=== PATIENT | male | born 1965 | race Caucasian/White ===

== ENCOUNTER → 2016-03-31 | Outpatient (CLI) | payer OTHER ==
[~2016-03-31] MED LIST: BACT800T5 PO; GEMF600T PO; HYDR-3583 PO; LISI-360 PO; LISI10TA3 PO; LOPI600T PO; PRED50 PO
[2016-03-31 10:11] LABS: BASOPHIL # 0.1 TH/MM3 (0-0.2); BASOPHIL % 1.3 % (0.0-2.0); EOSINOPHIL # 0.2 TH/MM3 (0-0.4); EOSINOPHIL % 4.9 % (0.0-4.0); HEMATOCRIT 40.9 % (39.0-51.0); HEMO FLAGS DIFF FINAL; LYMPH % 24.8 % (9.0-44.0); LYMPHOCYTE # 1.2 TH/MM3 (1.0-4.8); MEAN CELL VOLUME 92.1 FL (80.0-100.0); MEAN CORPUSCULAR HEMOGLOBIN 32.7 PG (27.0-34.0); MEAN CORPUSCULAR HGB CONC 35.5 % (32.0-36.0); MONO % 10.3 % (0.0-8.0); NEUT % 58.7 % (16.0-70.0); PLATELET COUNT 218 TH/MM3 (150-450); RED BLOOD COUNT 4.44 MIL/MM3 (4.50-5.90)
[2016-03-31 10:37] LABS: ALKALINE PHOSPHATASE 59 U/L (45-117); ALT (GPT) 24 U/L (12-78); ANION GAP 7 MEQ/L (5-15); AST (GOT) 10 U/L (15-37); BICARBONATE 27.3 MEQ/L (21.0-32.0); BLOOD UREA NITROGEN 17 MG/DL (7-18); CHLORIDE 105 MEQ/L (98-107); GLOMERULAR FILTRATION RATE 79 ML/MIN (>89); GLUCOSE,FASTING 91 MG/DL (74-99); HDL CHOLESTEROL 31.7 MG/DL (40.0-60.0); LDL CHOLESTEROL 34 MG/DL (0-99); POTASSIUM 4.4 MEQ/L (3.5-5.1); SODIUM (NA) 139 MEQ/L (136-145); TOTAL BILIRUBIN ADULT 0.3 MG/DL (0.2-1.0)
== END ==
LOC: CLAB 09:25
PROVIDERS: ATTEND Family Medicine
DX: E16.2 Hypoglycemia, unspecified (principal); M25.522 Pain in left elbow; E66.9 Obesity, unspecified; Z72.0 Tobacco use
CPT/HCPCS: 36415; 80053; 80061; 84443; 85025

== ENCOUNTER 2016-11-14 05:41 | Emergency (ER) | payer OTHER ==
[~2016-11-14] VITALS: Ht 180.3 cm; Wt 140.5 kg
[~2016-11-14 05:41] MED LIST changes: -BACT800T5 PO; -LISI-360 PO; -LOPI600T PO; -PRED50 PO
[2016-11-14 05:43] VITALS: BP 138/87; PULSE 103; RESP 20; TEMP 99.1; O2SAT 96
[2016-11-14 06:00] VITALS: BP 139/74; PULSE 88; RESP 18; TEMP 98.3; O2SAT 95
[2016-11-14] MEDS ORDERED: ACETAMINOPHEN/HYDROcodone 325 MG/5 MG TAB PO ONE (06:45)
[2016-11-14] MEDS ORDERED: CLIN1CAP5 PO (06:55)
[2016-11-14] MEDS ORDERED: NORC5TAB PO (06:55)
--- NOTE | 2016-11-14 06:55 | PD ---
HPI Chief Complaint: Skin Problem Time Seen by Provider: 06:36 Travel History International Travel<30 days: No Contact w/Intl Traveler<30days: No Traveled to known affect area: No History of Present Illness HPI Patient is a 51-year-old male presents emergency department for evaluation of redness and wound to his right lower extremity. He states initially started as an itching and then had some redness around it and then started draining. Denies any fever denies any chest pain shortness of breath abdominal pain nausea vomiting. States he is not a diabetic. Denies any other immune compromise. States symptoms for the past few days and gradually worsening. Moderate in intensity. PFSH Past Medical History Blood Disorders: No Cancer: No Cardiovascular Problems: Yes (HTN) High Cholesterol: Yes Chest Pain: No Diminished Hearing: No Endocrine: No Gastrointestinal Disorders: No Genitourinary: No Immune Disorder: No Musculoskeletal: No Neurologic: No Psychiatric: No Reproductive: No Respiratory: Yes (SPOT OF TISSUE IN ONE LUNG, BRONCHITIS) Tetanus Vaccination: > 5 Years Influenza Vaccination: Yes Past Surgical History Abdominal Surgery: No AICD: No Arteriovenous Shunt: No Cardiac Surgery: No Ear Surgery: No Endocrine Surgery: No Eye Surgery: No Genitourinary Surgery: No Gynecologic Surgery: No Insulin Pump: No Joint Replacement: No Neurologic Surgery: No Oral Surgery: No Pacemaker: No Thoracic Surgery: No Other Surgery: Yes (LEFT MIDDLE FINGER TENDON REPAIR) Social History Alcohol Use: Yes Tobacco Use: Yes (1/2 PPD) Substance Use: No Allergies-Medications (Allergen,Severity, Reaction): Coded Allergies: bee venom protein (honey bee) (Unverified Allergy, Severe, 11/14/16) Reported Meds & Prescriptions Reported Meds & Active Scripts Active [place] (Hydrocodone-Acetaminophen) 5-325 mg Tab 1 Tab PO Q6H PRN Clindamycin (Clindamycin HCl) 150 Mg Cap 300 Mg PO Q6H 7 Days Lisinopril 10 Mg Tab 10 Mg PO DAILY Gemfibrozil 600 Mg Tab 600 Mg PO BIDAC Take 30 minutes prior to breakfast and dinner. Review of Systems Except as stated in HPI: all other systems reviewed are Neg Physical Exam Narrative GENERAL: Well-developed well-nourished, obese but noticed distress. SKIN: Is a silver dollar-sized area of erythema surrounding a dime-sized ulceration in the skin which is draining minimal amounts of purulent fluid. No discernible abscess is palpable. No lymphadenopathy no lymph angina.. HEAD: Normocephalic. EYES: No scleral icterus. No injection or drainage. NECK: Supple, trachea midline. No JVD or lymphadenopathy. CARDIOVASCULAR: Regular rate and rhythm without murmurs, gallops, or rubs. RESPIRATORY: Breath sounds equal bilaterally. No accessory muscle use. GASTROINTESTINAL: Abdomen soft, non-tender, nondistended. MUSCULOSKELETAL: No cyanosis, or edema. 2+ bilateral equal pulses distally in all 4 extremities. BACK: Nontender without obvious deformity. No CVA tenderness. Data Data Last Documented VS Vital Signs Date Time Temp Pulse Resp B/P (MAP) Pulse Ox O2 Delivery O2 Flow Rate FiO2 11/14/16 07:00 97.8 78 16 130/69 (89) 99 11/14/16 06:00 Room Air Orders Orders Acetamin-Hydrocod 325-5 Mg ([place] 5-325 (11/14/16 06:45) MDM Medical Decision Making Medical Screen Exam Complete: Yes Emergency Medical Condition: Yes Differential Diagnosis Cellulitis, abscess, sepsis is excluded clinically. Narrative Course Patient roomed in emergency department, has simple cellulitis with small ulceration skin. Will be placed on antibiotics and pain medication. Discussed return to ED criteria and symptomatic management. Diagnosis Primary Impression: Cellulitis Qualified Codes: L03.115 - Cellulitis of right lower limb Med/Other Pt SpecificInfo: Prescription(s) given Scripts Hydrocodone-Acetaminophen ([place]) 5-325 mg Tab 1 TAB PO Q6H Y for PAIN, #15 TAB 0 Refills Prov: Philippe Pearson MD 11/14/16 Clindamycin (Clindamycin) 150 Mg Cap 300 MG PO Q6H for Infection for 7 Days, #56 CAP 0 Refills Prov: Philippe Pearson MD 11/14/16 Disposition: 01 DISCHARGE HOME Condition: Stable Philippe Pearson MD Nov 14, 2016 06:55
[2016-11-14 07:00] VITALS: BP 130/69; TEMP 97.8
== END 2016-11-14 07:00 | disposition home or self-care (01) ==
LOC: NEPC 05:41
DX: L03.115 Cellulitis of right lower limb (principal)
CPT/HCPCS: 99284

== ENCOUNTER 2017-06-15 05:37 | Inpatient (IN) | payer SELFPAY ==
[2017-06-15] VITALS (27 sets, daily range): BP systolic 82–115; BP diastolic 51–82; PULSE 130–150; RESP 15–20; TEMP 97.8–98.5; O2SAT 94–98
[~2017-06-15] VITALS: Ht 180.3 cm; Wt 144.0 kg
[~2017-06-15 05:37] MED LIST changes: +ADENOSINE IV SOLN 3 MG/ML 2 ML VIAL IV PUSH ONE; +CLIN150C14 PO; -HYDR-3583 PO; +NORC5TAB PO
[2017-06-15] MEDS ORDERED: ONDANSETRON HCL 4 MG/2 ML VIAL IV PUSH ONE (06:00)
[2017-06-15] MEDS ORDERED: ASPIRIN 81 MG CHEW TAB PO ONE (06:00)
[2017-06-15] MEDS ORDERED: SODIUM CHLORIDE 0.9% FLUSH 10 ML FLUSH IVF PRN (06:00)
[2017-06-15] MEDS: METOPROLOL TARTRATE 5 MG/5 ML VIAL IVS PRN ×3 (06:21→23:58)
[2017-06-15 06:26] LABS: BASOPHIL # 0.1 TH/MM3 (0-0.2); EOSINOPHIL # 0.2 TH/MM3 (0-0.4); EOSINOPHIL % 3.4 % (0.0-4.0); HEMATOCRIT 43.1 % (39.0-51.0); HEMOGLOBIN 15.1 GM/DL (13.0-17.0); LYMPH % 22.3 % (9.0-44.0); LYMPHOCYTE # 1.5 TH/MM3 (1.0-4.8); MEAN CELL VOLUME 94.6 FL (80.0-100.0); MEAN CORPUSCULAR HEMOGLOBIN 33.2 PG (27.0-34.0); MEAN CORPUSCULAR HGB CONC 35.1 % (32.0-36.0); MEAN PLATELET VOLUME 10.3 FL (7.0-11.0); MONO % 11.8 % (0.0-8.0); MONOCYTE # 0.8 TH/MM3 (0-0.9); NEUT % 61.5 % (16.0-70.0); PLATELET COUNT 200 TH/MM3 (150-450); RED BLOOD COUNT 4.55 MIL/MM3 (4.50-5.90); RED CELL DISTRIBUTION WIDTH 12.9 % (11.6-17.2); WHITE BLOOD COUNT 6.6 TH/MM3 (4.0-11.0)
--- NOTE | 2017-06-15 06:28 | PD ---
HPI . Chest pain Chief Complaint: Chest Pain Time Seen by Provider: 05:50 Travel History International Travel<30 days: No Contact w/Intl Traveler<30days: No Traveled to known affect area: No History of Present Illness HPI Patient presents with chest pain, palpitations, nausea and vomiting which started acutely at 2 AM. It awakened him from sleep. He denies any previous similar history. He initially thought that his symptoms were secondary to eating [place] sprouts. Symptoms persisted causing him to present to us at this time. Symptoms are actually very mild. There have been no modifying factors. He is now about 4 hours out from the onset of his symptoms. The patient admits to history of hypertension and previous hyperlipidemia. He states that he is compliant with his antihypertensives. He states that he is no longer on cholesterol medication. He denies any previous heart disease. PFSH Past Medical History Blood Disorders: No Cancer: No Cardiovascular Problems: Yes (HTN) High Cholesterol: Yes Chest Pain: No Diminished Hearing: No Endocrine: No Gastrointestinal Disorders: No Genitourinary: No Hypertension: Yes Immune Disorder: No Musculoskeletal: No Neurologic: No Psychiatric: No Reproductive: No Respiratory: Yes (SPOT OF TISSUE IN ONE LUNG, BRONCHITIS) Tetanus Vaccination: Unknown Influenza Vaccination: No Past Surgical History Abdominal Surgery: No AICD: No Arteriovenous Shunt: No Cardiac Surgery: No Ear Surgery: No Endocrine Surgery: No Eye Surgery: No Genitourinary Surgery: No Gynecologic Surgery: No Insulin Pump: No Joint Replacement: No Neurologic Surgery: No Oral Surgery: No Pacemaker: No Thoracic Surgery: No Other Surgery: Yes (LEFT MIDDLE FINGER TENDON REPAIR) Social History Alcohol Use: Yes (occasionally) Tobacco Use: Yes (1/2 PPD) Substance Use: No Allergies-Medications (Allergen,Severity, Reaction): Coded Allergies: bee venom protein (honey bee) (Unverified Allergy, Severe, 06/15/17) Reported Meds & Prescriptions Reported Meds & Active Scripts Active [place] (Hydrocodone-Acetaminophen) 5-325 mg Tab 1 Tab PO Q6H PRN Lisinopril 10 Mg Tab 10 Mg PO DAILY Review of Systems Except as stated in HPI: all other systems reviewed are Neg Physical Exam Narrative GENERAL: Awake and alert and in no acute distress. SKIN: warm/dry. HEAD: Normocephalic. Atraumatic. EYES: Pupils equal and round. No scleral icterus. No injection or drainage. ENT: No nasal bleeding or discharge. Mucous membranes pink and moist. NECK: Trachea midline. Full range of motion without pain.. CARDIOVASCULAR: Regular tachycardia at about 150. RESPIRATORY: No accessory muscle use. Clear to auscultation. Breath sounds equal bilaterally. GASTROINTESTINAL: Abdomen soft. Nontender. Bowel sounds present. Nondistended. MUSCULOSKELETAL: No obvious deformities. He does have peripheral edema. He states that this is chronic and unchanged. NEUROLOGICAL: Awake and alert. No obvious cranial nerve deficits. Motor grossly within normal limits. Normal speech. PSYCHIATRIC: Appropriate mood and affect; insight and judgment normal. Data Data Last Documented VS Vital Signs Date Time Temp Pulse Resp B/P (MAP) Pulse Ox O2 Delivery O2 Flow Rate FiO2 06/15/17 07:10 98.2 137 18 102/61 (75) 96 Room Air Orders Orders Electrocardiogram (06/15/17 05:52) Basic Metabolic Panel (Bmp) (06/15/17 05:52) Complete Blood Count With Diff (06/15/17 05:52) Magnesium (Mg) (06/15/17 05:52) Prothrombin Time / Inr (Pt) (06/15/17 05:52) Act Partial Throm Time (Ptt) (06/15/17 05:52) Troponin I (06/15/17 05:52) Chest, Single Ap (06/15/17 05:52) Ecg Monitoring (06/15/17 05:52) Iv Access Insert/Monitor (06/15/17 05:52) Oximetry (06/15/17 05:52) Aspirin Chew (Aspirin Chew) (06/15/17 06:00) Sodium Chloride 0.9% Flush (Ns Flush) (06/15/17 06:00) Metoprolol Tartrate Inj (Lopressor Inj) (06/15/17 06:00) Alcohol (Ethanol) (06/15/17 05:52) Ondansetron Inj (Zofran Inj) (06/15/17 06:00) Sodium Chlor 0.9% 1000 Ml Inj (Ns 1000 M (06/15/17 06:45) Thyroid Stimulating Hormone (06/15/17 06:47) Diltiazem Inj (Cardizem Inj) (06/15/17 07:15) Ns (Bolus) Inj (06/15/17 07:15) Labs Laboratory Tests Test 4/16/18 06:08 White Blood Count 6.6 TH/MM3 Red Blood Count 4.55 MIL/MM3 Hemoglobin 15.1 GM/DL Hematocrit 43.1 % Mean Corpuscular Volume 94.6 FL Mean Corpuscular Hemoglobin 33.2 PG Mean Corpuscular Hemoglobin Concent 35.1 % Red Cell Distribution Width 12.9 % Platelet Count 200 TH/MM3 Mean Platelet Volume 10.3 FL Neutrophils (%) (Auto) 61.5 % Lymphocytes (%) (Auto) 22.3 % Monocytes (%) (Auto) 11.8 % Eosinophils (%) (Auto) 3.4 % Basophils (%) (Auto) 1.0 % Neutrophils # (Auto) 4.0 TH/MM3 Lymphocytes # (Auto) 1.5 TH/MM3 Monocytes # (Auto) 0.8 TH/MM3 Eosinophils # (Auto) 0.2 TH/MM3 Basophils # (Auto) 0.1 TH/MM3 CBC Comment DIFF FINAL Differential Comment Prothrombin Time 10.4 SEC Prothromb Time International Ratio 1.0 RATIO Activated Partial Thromboplast Time 25.3 SEC Blood Urea Nitrogen 19 MG/DL Creatinine 1.11 MG/DL Random Glucose 118 MG/DL Calcium Level 8.5 MG/DL Magnesium Level 1.8 MG/DL Sodium Level 141 MEQ/L Potassium Level 4.2 MEQ/L Chloride Level 110 MEQ/L Carbon Dioxide Level 22.9 MEQ/L Anion Gap 8 MEQ/L Estimat Glomerular Filtration Rate 70 ML/MIN Troponin I LESS THAN 0.02 NG/ML Ethyl Alcohol Level LESS THAN 3 MG/DL MDM Medical Decision Making Medical Screen Exam Complete: Yes Emergency Medical Condition: Yes Interpretation(s) EKG shows atrial flutter with a rate of 150. Differential Diagnosis Differential diagnosis of chest pain includes but is not limited to musculoskeletal pain, pulmonary embolism, acute coronary syndrome, pneumonia, pleurisy Narrative Course This patient presents with a chief complaint of chest pain, palpitations and nausea/vomiting. He was found to have a rapid heart rate and to be in atrial flutter with a rate of 150. IV access was obtained and metoprolol was ordered. Routine chest pain workup is in process. He has been given aspirin. He has also been given Zofran. The patient has had 1 dose of IV metoprolol but is a little bit hypotensive with a systolic of around 100. The low systolic pressure has been persistent for the last half hour or so. I will give him a fluid bolus before giving him any more metoprolol. CBC Diagram 06/15/17 06:08 He has had 2 doses of metoprolol. His heart rate is about 140. His care is turned over to Dr. Peters at change of shift. Critical Care Narrative Aggregate critical care time was 30 minutes. Time to perform other separately billable procedures was not included in the critical care time. My time did not include minutes spent treating any other patients simultaneously or on activities that did not directly contribute to the patient's treatment. The services I provided to this patient were to treat and/or prevent clinically significant deterioration due to atrial flutter with a rapid ventricular response I provided critical care services requiring my management, as noted below: Chart data review, documentation time, medication orders and management, vital sign assessments/reviewing monitor data, ordering and reviewing lab tests, ordering and interpreting/reviewing x-rays and diagnostic studies, care of the patient and discussion of the patient with the admitting physicians Diagnosis Primary Impression: Atrial flutter with rapid ventricular response Additional Impression: Chest pain Qualified Codes: R07.9 - Chest pain, unspecified Condition: Stable America Black MD Jun 15, 2017 06:28
[2017-06-15 06:37] LABS: PROTHROMBIN TIME - PATIENT 10.4 SEC (9.8-11.6)
--- NOTE | 2017-06-15 06:40 | RADRPT ---
EXAM DATE/TIME: 06/15/2017 06:08 [facility] COMPARISON: CHEST PA & LAT, September 29, 2014, 15:40. INDICATIONS : Short of breath, dizziness. MEDICAL HISTORY : None. SURGICAL HISTORY : None. ENCOUNTER: Initial ACUITY: 1 day PAIN SCORE: 0/10 LOCATION: Bilateral chest FINDINGS: A single view of the chest demonstrates the lungs to be symmetrically aerated without evidence of mas s, infiltrate or effusion. The cardiomediastinal contours are unremarkable. Osseous structures are intact. CONCLUSION: No acute cardiopulmonary disease demonstrated. Zaid Lopez MD on June 15, 2017 at 6:38 Board Certified Radiologist. This report was verified electronically.
[2017-06-15 06:42] LABS: BICARBONATE 22.9 MEQ/L (21.0-32.0); BLOOD UREA NITROGEN 19 MG/DL (7-18); CALCIUM 8.5 MG/DL (8.5-10.1); CHLORIDE 110 MEQ/L (98-107); CREATININE 1.11 MG/DL (0.60-1.30); GLOMERULAR FILTRATION RATE 70 ML/MIN (>89); GLUCOSE,RANDOM 118 MG/DL (74-106); MAGNESIUM 1.8 MG/DL (1.5-2.5); SODIUM (NA) 141 MEQ/L (136-145)
[2017-06-15] MEDS ORDERED: SODIUM CHLOR 0.9% 1000 ML INJ 1,000 ML IV ONE (06:45)
[2017-06-15 06:46] LABS: TROPONIN I LESS THAN 0.02 NG/ML (0.02-0.05)
[2017-06-15] MEDS ORDERED: DILTIAZEM HCL 25 MG/5 ML VIAL IV ONE (07:15)
[2017-06-15] MEDS ORDERED: SODIUM CHLORID 0.9% 500 ML INJ 500 ML IV ONE (07:15)
[2017-06-15] MEDS ORDERED: DILTIAZEM HCL 50 MG/10 ML VIAL ONE (07:16)
[2017-06-15] MEDS ORDERED: ESMOLOL HCL 100 MG/10 ML VIAL IV PUSH ONE (07:45)
[2017-06-15] MEDS ORDERED: ADENOSINE IV SOLN 3 MG/ML 2 ML VIAL IV PUSH ONE ×2 (08:00)
[2017-06-15] MEDS: ESMOLOL DRIP INJ PREMIX 250 ML IV PRN ×3 (08:07→10:05)
--- NOTE | 2017-06-15 08:12 | PD ---
Physical Exam Date Seen by Provider: Jun 15, 2017 Time Seen by Provider: 08:06 Narrative 52-year-old male came to the emergency room with sudden onset chest pain, palpitations and burning sensation at 2 in the morning. Patient says that it woke him up from sleep. The pain first started from his abdomen and went up to the chest. After passing gas patient felt a little better and went back to sleep. He woke up after another hour or so to get up and get ready to go to work. He walked from his bed to the bathroom and got extremely short of breath with heaviness of both arms. This made him come to the emergency room. He was seen by the previous ER physician. EKG showed atrial flutter with a 2-1 block. There has been an institutional shortage of Cardizem. She gave him 5 mg of IV Lopressor which did not change the heart rate. Blood test results were back and within acceptable limits. Patient was signed over to me to manage at this point. I gave the patient 20 mg of IV Cardizem bolus which again did not change the rhythm with a rate. I tried giving him 6 mg of adenosine which converted him briefly to atrial flutter with variable block. But soon after that the rate picked up and went to 2:1 block. I gave him 12 more milligrams of adenosine and the response was identical. Rhythm strips were printed which shows the brief slowing down of the heart rate. Patient tolerated the procedure well. At this point I decided to start him on esmolol bolus and drip which has been recommended by security guard due to the Cardizem shortage. I started him on heparin bolus and drip as well. Awaiting for the hospitalist to call back for admission. Awaiting for the security guard to call back. This is a new onset A. fib/A flutter for this patient. Data Data Last Documented VS Vital Signs Date Time Temp Pulse Resp B/P (MAP) Pulse Ox O2 Delivery O2 Flow Rate FiO2 06/15/17 08:33 136 100/62 06/15/17 07:37 98.2 16 96 Room Air Orders Orders Electrocardiogram (06/15/17 05:52) Basic Metabolic Panel (Bmp) (06/15/17 05:52) Complete Blood Count With Diff (06/15/17 05:52) Magnesium (Mg) (06/15/17 05:52) Prothrombin Time / Inr (Pt) (06/15/17 05:52) Act Partial Throm Time (Ptt) (06/15/17 05:52) Troponin I (06/15/17 05:52) Chest, Single Ap (06/15/17 05:52) Ecg Monitoring (06/15/17 05:52) Iv Access Insert/Monitor (06/15/17 05:52) Oximetry (06/15/17 05:52) Aspirin Chew (Aspirin Chew) (06/15/17 06:00) Sodium Chloride 0.9% Flush (Ns Flush) (06/15/17 06:00) Metoprolol Tartrate Inj (Lopressor Inj) (06/15/17 06:00) Alcohol (Ethanol) (06/15/17 05:52) Ondansetron Inj (Zofran Inj) (06/15/17 06:00) Sodium Chlor 0.9% 1000 Ml Inj (Ns 1000 M (06/15/17 06:45) Thyroid Stimulating Hormone (06/15/17 06:47) Diltiazem Inj (Cardizem Inj) (06/15/17 07:15) Sodium Chlorid 0.9% 500 Ml Inj (Ns 500 M (06/15/17 07:15) Diltiazem Inj (Cardizem Inj) (06/15/17 07:16) Esmolol Drip Inj Premix (Brevibloc Drip (06/15/17 07:45) Esmolol Bolus Inj (Brevibloc Bolus Inj) (06/15/17 07:45) Adenosine Inj (Adenocard Inj) (06/15/17 08:00) Adenosine Inj (Adenocard Inj) (06/15/17 08:00) Heparin Inj (Heparin Inj) (06/15/17 08:15) Heparin Inj (Heparin Inj) (06/15/17 14:15) Heparin Inj (Heparin Inj) (06/15/17 14:15) Heparin-D5w 25,000 U/250 Ml (Heparin-D5w (06/15/17 08:15) Act Partial Throm Time (Ptt) (06/15/17 08:03) Cbc No Diff, Includes Plts (06/15/17 08:03) Act Partial Throm Time (Ptt) (06/15/17 15:03) Occult Blood (Hemoccult) Stool (06/15/17 08:03) Admit Order (Ed Use Only) (06/15/17 08:33) Labs Laboratory Tests Test 06/15/17 06:08 White Blood Count 6.6 TH/MM3 Red Blood Count 4.55 MIL/MM3 Hemoglobin 15.1 GM/DL Hematocrit 43.1 % Mean Corpuscular Volume 94.6 FL Mean Corpuscular Hemoglobin 33.2 PG Mean Corpuscular Hemoglobin Concent 35.1 % Red Cell Distribution Width 12.9 % Platelet Count 200 TH/MM3 Mean Platelet Volume 10.3 FL Neutrophils (%) (Auto) 61.5 % Lymphocytes (%) (Auto) 22.3 % Monocytes (%) (Auto) 11.8 % Eosinophils (%) (Auto) 3.4 % Basophils (%) (Auto) 1.0 % Neutrophils # (Auto) 4.0 TH/MM3 Lymphocytes # (Auto) 1.5 TH/MM3 Monocytes # (Auto) 0.8 TH/MM3 Eosinophils # (Auto) 0.2 TH/MM3 Basophils # (Auto) 0.1 TH/MM3 CBC Comment DIFF FINAL Differential Comment Prothrombin Time 10.4 SEC Prothromb Time International Ratio 1.0 RATIO Activated Partial Thromboplast Time 25.3 SEC Blood Urea Nitrogen 19 MG/DL Creatinine 1.11 MG/DL Random Glucose 118 MG/DL Calcium Level 8.5 MG/DL Magnesium Level 1.8 MG/DL Sodium Level 141 MEQ/L Potassium Level 4.2 MEQ/L Chloride Level 110 MEQ/L Carbon Dioxide Level 22.9 MEQ/L Anion Gap 8 MEQ/L Estimat Glomerular Filtration Rate 70 ML/MIN Troponin I LESS THAN 0.02 NG/ML Thyroid Stimulating Hormone 3rd Gen 1.570 uIU/ML Ethyl Alcohol Level LESS THAN 3 MG/DL MDM Supervised Visit with [facility]: No Narrative Course 8:32 AM case was discussed with cardiology Dr. Marquez. He agrees with the plan so far. As per him if the esmolol drip does not work then amiodarone would be the next choice. Patient has been admitted to the hospitalist. I have conveyed this to the hospitalist as well. Critical Care Narrative Aggregate critical care time was 45 minutes. Time to perform other separately billable procedures was not included in the critical care time. My time did not include minutes spent treating any other patients simultaneously or on activities that did not directly contribute to the patient's treatment. The services I provided to this patient were to treat and/or prevent clinically significant deterioration that could result in: Atrial flutter with 2-1 block, new onset atrial flutter/A. fib, esmolol bolus and drip, heparin bolus and drip I provided critical care services requiring my management, as noted below: Chart data review, documentation time, medication orders and management, vital sign assessments/reviewing monitor data, ordering and reviewing lab tests, ordering and interpreting/reviewing x-rays and diagnostic studies, care of the patient and discussion of the patient with the admitting physicians. Procedures Procedure Narrative Chemical cardioversion: Adenosine 6 mg IV was given through the right ACL rapid push followed by one rapid push normal saline flush. The heart rate slowed down and went into a flutter with variable block for a brief second. This was followed by recovery of the 2-1 block of atrial flutter. 12 mg more of adenosine was pushed in the same manner once again with identical response. Patient overall tolerated the procedure well. Physician Communication Physician Communication Dr. Marquez Diagnosis Primary Impression: Atrial flutter with rapid ventricular response Additional Impressions: Chest pain Qualified Codes: R07.9 - Chest pain, unspecified New onset a-fib Admitting Information Admitting Physician Requests: Admit Scripts Apixaban (Eliquis) 5 Mg Tab 5 MG PO BID for Blood Clot Prevention, #60 TAB Prov: Sandra Avila MD 06/17/17 Condition: Stable Nestor Peters MD Jun 15, 2017 08:12
[2017-06-15] MEDS ORDERED: HEPARIN SODIUM - IV 10,000 UNITS/10 ML VIAL IV ONE (08:15)
[2017-06-15] MEDS ORDERED: SODIUM CHLORIDE 0.9% FLUSH 10 ML FLUSH IV FLUSH PRN (08:45)
[2017-06-15] MEDS ORDERED: ACETAMINOPHEN 325 MG TAB PO PRN (08:45)
[2017-06-15] MEDS ORDERED: LACTULOSE SYRUP 20 GM/30 ML CUP PO PRN (08:45)
[2017-06-15] MEDS ORDERED: MAGNESIUM HYDROXIDE SUSP 30 ML CUP PO PRN (08:45)
[2017-06-15] MEDS ORDERED: ONDANSETRON HCL 4 MG/2 ML VIAL IVP PRN (08:45)
[2017-06-15] MEDS ORDERED: SENNOSIDES 8.6 MG TAB PO PRN (08:45)
[2017-06-15] MEDS ORDERED: BISACODYL 10 MG SUPP RECTAL PRN (08:45)
[2017-06-15] MEDS ORDERED: NALOXONE HCL 0.4 MG/ML AMP IV PUSH PRN (08:45)
[2017-06-15] MEDS: HEPARIN-D5W 25,000 U/250 ML 250 ML IV PRN (08:46)
[2017-06-15] MEDS: SODIUM CHLORIDE 0.9% FLUSH 10 ML FLUSH IV FLUSH SCH ×2 (08:55→21:00)
[2017-06-15] MEDS: DOCUSATE SODIUM 50 MG/SENNA 8.6 MG TAB PO SCH ×2 (09:01→21:00)
[2017-06-15] MEDS: ACETAMINOPHEN/HYDROcodone 325 MG/5 MG TAB PO PRN ×3 (09:01→20:57)
[2017-06-15 09:47] LABS: HEMOGLOBIN 14.3 GM/DL (13.0-17.0); MEAN CELL VOLUME 95.3 FL (80.0-100.0); MEAN CORPUSCULAR HEMOGLOBIN 33.3 PG (27.0-34.0); MEAN CORPUSCULAR HGB CONC 34.9 % (32.0-36.0); MEAN PLATELET VOLUME 10.7 FL (7.0-11.0); PLATELET COUNT 207 TH/MM3 (150-450); RED CELL DISTRIBUTION WIDTH 12.9 % (11.6-17.2); WHITE BLOOD COUNT 8.2 TH/MM3 (4.0-11.0)
[2017-06-15] MEDS ORDERED: AMIODARONE INJ 150 MG in DEXTROSE 5% IN WATER 100ML INJ 100 ML IV ONE ×2 (11:30)
[2017-06-15] MEDS: AMIODARONE INJ 450 MG in SODIUM CHLOR 0.9% (EXCEL) INJ 241 ML IV PRN (11:50)
[2017-06-15] MEDS ORDERED: HEPARIN SODIUM - IV 10,000 UNITS/10 ML VIAL IV PRN (14:15)
--- NOTE | 2017-06-15 15:11 | HHI.HP ---
HPI Service [facility] Primary Care Physician No Primary Care Physician Admission Diagnosis New onset A. fib/A flutter, a flutter with 2-1 block Diagnoses: Chief Complaint: sob, palpitations Travel History International Travel<30 Days: No Contact w/Intl Traveler <30 Da: No Traveled to Known Affected Are: No History of Present Illness Patient is a 52 yo male with PMH of HTN, chronic back pain, presents with chest pain, palpitations, sob, nausea and vomiting which started acutely at 2 AM. It awakened him from sleep. He denies any previous similar history. He initially thought that his symptoms were secondary to eating [place] sprouts. Symptoms persisted causing him to present to ED for further evaluation. Symptoms are very mild. There have been no modifying factors. The patient admits to history of hypertension and previous hyperlipidemia. He states that he is compliant with his antihypertensives. He states that he is no longer on cholesterol medication. He denies any previous heart disease.Says she is complainant in taking his eds for BP and with follow up. Review of Systems Except as stated in HPI: all other systems reviewed are Neg Past Family Social History Past Medical History HTN, chronic back pain Past Surgical History Left middle finger tendon repair Reported Medications Last Impressions Chest X-Ray 06/15/17 0552 Signed Impressions: Service Date/Time: Thursday, June 15, 2017 06:08 - CONCLUSION: No acute cardiopulmonary disease demonstrated. Zaid Lopez MD Allergies: Coded Allergies: bee venom protein (honey bee) (Unverified Allergy, Severe, 06/15/17) Family History Father: had triple bypass, hypertension Mother: lymph node cancer, adrenal cancer, hypertension Social History Alcohol Use: Yes (occasionally) Tobacco Use: Yes (1-2 PPD) Substance Use: No Physical Exam Vital Signs Vital Signs Date Time Temp Pulse Resp B/P (MAP) Pulse Ox O2 Delivery O2 Flow Rate FiO2 06/15/17 15:03 98.3 142 18 91/51 (64) 95 06/15/17 15:03 140 06/15/17 14:09 140 06/15/17 13:31 98.3 138 18 115/62 (79) 95 06/15/17 13:29 138 06/15/17 12:45 98.0 131 20 98/67 (77) 99 Nasal Cannula 2.00 06/15/17 12:37 98.2 138 15 97/56 (70) 98 Nasal Cannula 2.00 06/15/17 11:50 133 93/52 06/15/17 11:37 139 92/55 06/15/17 11:05 98.3 134 20 82/54 (63) 98 Nasal Cannula 2.00 06/15/17 10:34 133 80/49 06/15/17 10:05 132 100/59 06/15/17 10:03 20 97 Nasal Cannula 2.00 06/15/17 10:01 17 06/15/17 09:22 98.5 132 15 93/51 (65) 96 Room Air 06/15/17 09:02 97.8 133 18 99/58 (72) 97 Room Air 06/15/17 08:41 96 21 06/15/17 08:41 129 100/61 06/15/17 08:33 136 100/62 06/15/17 08:22 138 102/68 06/15/17 08:09 140 102/63 06/15/17 08:07 140 102/63 06/15/17 07:37 98.2 138 16 106/54 (71) 96 Room Air 06/15/17 07:15 98.3 139 15 92/54 (67) 95 Room Air 06/15/17 07:15 140 15 95 Room Air 06/15/17 07:10 98.2 137 18 102/61 (75) 96 Room Air 06/15/17 06:24 150 18 101/68 (79) 96 Room Air 06/15/17 06:12 94 06/15/17 05:39 97.9 150 20 111/82 (92) 94 Physical Exam GENERAL: This is a well-nourished, well-developed patient, in no apparent distress. SKIN: No rashes, ecchymoses or lesions. Cool and dry. HEAD: Atraumatic. Normocephalic. No temporal or scalp tenderness. EYES: Pupils equal round and reactive. Extraocular motions intact. No scleral icterus. No injection or drainage. ENT: Nose without bleeding, purulent drainage or septal hematoma. Throat without erythema, tonsillar hypertrophy or exudate. Uvula midline. Airway patent. NECK: Trachea midline. No JVD or lymphadenopathy. Supple, nontender, no meningeal signs. CARDIOVASCULAR: Tachycardic. Regular rate and rhythm without murmurs, gallops, or rubs. RESPIRATORY: Clear to auscultation. Breath sounds equal bilaterally. No wheezes , rales, or rhonchi. GASTROINTESTINAL: Abdomen soft, non-tender, nondistended. No hepato-splenomegaly , or palpable masses. No guarding. MUSCULOSKELETAL: Extremities without clubbing, cyanosis, or edema. No joint tenderness, effusion, or edema noted. No calf tenderness. Negative Homans sign bilaterally. NEUROLOGICAL: Awake and alert. Cranial nerves II through XII intact. Motor and sensory grossly within normal limits. Five out of 5 muscle strength in all muscle groups. Normal speech. Laboratory Laboratory Tests Test 06/15/17 06:08 06/15/17 09:00 White Blood Count 6.6 8.2 Red Blood Count 4.55 4.30 Hemoglobin 15.1 14.3 Hematocrit 43.1 41.0 Mean Corpuscular Volume 94.6 95.3 Mean Corpuscular Hemoglobin 33.2 33.3 Mean Corpuscular Hemoglobin Concent 35.1 34.9 Red Cell Distribution Width 12.9 12.9 Platelet Count 200 207 Mean Platelet Volume 10.3 10.7 Neutrophils (%) (Auto) 61.5 Lymphocytes (%) (Auto) 22.3 Monocytes (%) (Auto) 11.8 Eosinophils (%) (Auto) 3.4 Basophils (%) (Auto) 1.0 Neutrophils # (Auto) 4.0 Lymphocytes # (Auto) 1.5 Monocytes # (Auto) 0.8 Eosinophils # (Auto) 0.2 Basophils # (Auto) 0.1 CBC Comment DIFF FINAL Differential Comment Prothrombin Time 10.4 Prothromb Time International Ratio 1.0 Activated Partial Thromboplast Time 25.3 51.9 Blood Urea Nitrogen 19 Creatinine 1.11 Random Glucose 118 Calcium Level 8.5 Magnesium Level 1.8 Sodium Level 141 Potassium Level 4.2 Chloride Level 110 Carbon Dioxide Level 22.9 Anion Gap 8 Estimat Glomerular Filtration Rate 70 Troponin I LESS THAN 0.02 Thyroid Stimulating Hormone 3rd Gen 1.570 Ethyl Alcohol Level LESS THAN 3 Result Diagram: 06/15/17 0900 06/15/17 0608 Imaging Last Impressions Chest X-Ray 06/15/17 0552 Signed Impressions: Service Date/Time: Thursday, June 15, 2017 06:08 - CONCLUSION: No acute cardiopulmonary disease demonstrated. MD Rosa Shearer VTE Risk Assessment Rosa VTE Risk Assessment: Mod/High Risk (score >= 2) Caprini Risk Assessment Model Point Value = 1 Point Value = 2 Point Value = 3 Point Value = 5 Age 41-60 Minor surgery BMI > 25 kg/m2 Swollen legs Varicose veins or History of unexplained or recurrent spontaneous Oral contraceptives or hormone replacement Sepsis (< 1 month) Serious lung disease, including pneumonia (< 1 month) Abnormal pulmonary function Acute myocardial infarction Congestive heart failure (< 1 month) History of inflammatory bowel disease Medical patient at bed rest Age 61-74 Arthroscopic surgery Major open surgery (> 45 min) Laparoscopic surgery (> 45 min) Malignancy Confined to bed (> 72 hours) Immobilizing plaster cast Central venous access Age >= 75 History of VTE Family history of VTE Factor V Leiden Prothrombin [id number] Lupus anticoagulant Anticardiolipin antibodies Elevated serum homocysteine Heparin-induced thrombocytopenia Other congenital or acquired thrombophilia Stroke (< 1 month) Elective arthroplasty Hip, pelvis, or leg fracture Acute spinal cord injury (< 1 month) Prophylaxis Regimen Total Risk Factor Score Risk Level Prophylaxis Regimen 0-1 Low Early ambulation 2 Moderate Order ONE of the following: *Sequential Compression Device (SCD) *Heparin 5000 units SQ BID 3-4 Higher Order ONE of the following medications: *Heparin 5000 units SQ TID *Enoxaparin/Lovenox 40 mg SQ daily (WT < 150 kg, CrCl > 30 mL/min) *Enoxaparin/Lovenox 30 mg SQ daily (WT < 150 kg, CrCl > 10-29 mL/min) *Enoxaparin/Lovenox 30 mg SQ BID (WT < 150 kg, CrCl > 30 mL/min) AND/OR *Sequential Compression Device (SCD) 5 or more Highest Order ONE of the following medications: *Heparin 5000 units SQ TID (Preferred with Epidurals) *Enoxaparin/Lovenox 40 mg SQ daily (WT < 150 kg, CrCl > 30 mL/min) *Enoxaparin/Lovenox 30 mg SQ daily (WT < 150 kg, CrCl > 10-29 mL/min) *Enoxaparin/Lovenox 30 mg SQ BID (WT < 150 kg, CrCl > 30 mL/min) AND *Sequential Compression Device (SCD) Assessment and Plan Assessment and Plan Admit to inpatient [facility] Atrial flutter with rapid ventricular response, with a rate of 150 on admission Hypertension Chronic back pain Bilateral renal mass indicated MRI for further evaluation. Patient will have MRI as outpatient Received adenosine in the emergency room, also metoprolol, Cardizem, he was also placed on esmolol however she has blood pressure is noted persistent low. This I discontinue the esmolol. Start amiodarone bolus followed by amiodarone drip. Discussed with Dr. Marquez cardiology following. Plan to consult community specialist Dr. Crain for evaluation of ablation this patient with persistent atrial flutter Restart home medications as appropriate. Hold lisinopril if systolic blood pressure lower than 110 Started on heparin drip DVT prophylaxis on heparin drip Discussed Condition With Discussed with the patient, family at bedside, Dr. Marquez cardiology, ED physician Physician Certification 2 Midnight Certification Type: Admission for Inpatient Services Order for Inpatient Services The services are ordered in accordance with Medicare regulations or non- Medicare payer requirements, as applicable. In the case of services not specified as inpatient-only, they are appropriately provided as inpatient services in accordance with the 2-midnight benchmark. Estimated LOS (days): 3 days is the estimated time the patient will need to remain in the hospital, assuming treatment plan goals are met and no additional complications. Post-Hospital Plan: Home Sandra Avila MD Jun 15, 2017 15:11
[2017-06-15] MEDS: LORazepam 0.5 MG TAB PO PRN (15:27)
[2017-06-15] MEDS: HEPARIN SODIUM - IV 10,000 UNITS/10 ML VIAL IV PRN (20:27)
[2017-06-16] VITALS (30 sets, daily range): BP systolic 88–124; BP diastolic 57–79; PULSE 74–141; RESP 14–20; TEMP 97.4–98.5; O2SAT 92–99
[2017-06-16 02:32] LABS: AUTOMATED NEUTROPHIL # 4.4 TH/MM3 (1.8-7.7); BASOPHIL # 0.1 TH/MM3 (0-0.2); BASOPHIL % 0.8 % (0.0-2.0); EOSINOPHIL # 0.3 TH/MM3 (0-0.4); EOSINOPHIL % 4.2 % (0.0-4.0); HEMATOCRIT 41.4 % (39.0-51.0); HEMOGLOBIN 14.3 GM/DL (13.0-17.0); LYMPH % 30.2 % (9.0-44.0); LYMPHOCYTE # 2.4 TH/MM3 (1.0-4.8); MEAN CELL VOLUME 96.5 FL (80.0-100.0); MEAN CORPUSCULAR HEMOGLOBIN 33.5 PG (27.0-34.0); MEAN CORPUSCULAR HGB CONC 34.7 % (32.0-36.0); MEAN PLATELET VOLUME 10.3 FL (7.0-11.0); MONO % 9.7 % (0.0-8.0); MONOCYTE # 0.8 TH/MM3 (0-0.9); NEUT % 55.1 % (16.0-70.0); PLATELET COUNT 184 TH/MM3 (150-450); RED BLOOD COUNT 4.29 MIL/MM3 (4.50-5.90); RED CELL DISTRIBUTION WIDTH 12.9 % (11.6-17.2)
[2017-06-16 02:46] LABS: BICARBONATE 25.9 MEQ/L (21.0-32.0); CREATININE 0.97 MG/DL (0.60-1.30)
[2017-06-16] MEDS: ACETAMINOPHEN/HYDROcodone 325 MG/5 MG TAB PO PRN ×2 (03:39→21:33)
[2017-06-16] MEDS: HEPARIN SODIUM - IV 10,000 UNITS/10 ML VIAL IV PRN ×2 (03:40→10:57)
--- NOTE | 2017-06-16 07:53 | HHI.PR ---
Subjective Remarks Patient in bed with some sob. HR uncontrolled sustained in 130s while on amiodarone drip. Plan for EP eval. No n/v/d/c. Denies chest pain. No fever or chills. Objective Vitals Vital Signs Date Time Temp Pulse Resp B/P (MAP) Pulse Ox O2 Delivery O2 Flow Rate FiO2 06/16/17 07:49 92 Nasal Cannula 3.00 21 06/16/17 05:52 85 06/16/17 05:39 97 06/16/17 05:26 119 06/16/17 05:00 109 06/16/17 04:00 135 06/16/17 03:10 102 06/16/17 03:00 98.2 102 20 102/74 (83) 94 06/16/17 02:00 105 06/16/17 02:00 130 18 88/57 (67) 96 06/16/17 01:39 97 06/16/17 01:00 130 06/16/17 00:39 87 06/16/17 00:35 96 18 91/63 (72) 96 06/16/17 00:10 98.5 133 20 95/68 (77) 94 06/16/17 00:00 130 06/15/17 23:30 133 20 92/62 (72) 94 06/15/17 23:20 133 06/15/17 23:20 133 20 100/70 (80) 94 06/15/17 22:00 130 06/15/17 21:00 138 06/15/17 21:00 130 06/15/17 20:00 98.3 140 20 108/70 (83) 95 06/15/17 20:00 140 06/15/17 19:19 97 06/15/17 19:00 140 06/15/17 19:00 140 108/70 18 18:19 139 06/15/17 17:02 131 06/15/17 16:50 18 06/15/17 16:01 142 06/15/17 15:03 98.3 142 18 91/51 (64) 95 06/15/17 15:03 140 06/15/17 14:09 140 06/15/17 13:31 98.3 138 18 115/62 (79) 95 06/15/17 13:29 138 06/15/17 12:45 98.0 131 20 98/67 (77) 99 Nasal Cannula 2.00 06/15/17 12:37 98.2 138 15 97/56 (70) 98 Nasal Cannula 2.00 06/15/17 11:50 133 93/52 06/15/17 11:37 139 92/55 06/15/17 11:05 98.3 134 20 82/54 (63) 98 Nasal Cannula 2.00 06/15/17 10:34 133 80/49 06/15/17 10:05 132 100/59 06/15/17 10:03 20 97 Nasal Cannula 2.00 06/15/17 09:22 98.5 132 15 93/51 (65) 96 Room Air 06/15/17 09:02 97.8 133 18 99/58 (72) 97 Room Air 06/15/17 08:41 96 21 06/15/17 08:41 129 100/61 06/15/17 08:33 136 100/62 06/15/17 08:22 138 102/68 06/15/17 08:09 140 102/63 06/15/17 08:07 140 102/63 I/O 06/15/17 06/15/17 06/15/17 06/16/17 06/16/17 06/16/17 07:00 15:00 23:00 07:00 15:00 23:00 Intake Total 2006 ml 480 ml 1006 ml Output Total 400 ml 2300 ml Balance 2006 ml 80 ml -1294 ml Intake Oral 300 ml 480 ml 660 ml IV Total 1706 ml 346 ml Output Urine Total 400 ml 2300 ml # Voids 1 # Bowel Movements 1 0 Result Diagram: 06/16/17 0226 06/16/17 0226 Imaging Last Impressions Chest X-Ray 06/15/17 0552 Signed Impressions: Service Date/Time: Thursday, June 15, 2017 06:08 - CONCLUSION: No acute cardiopulmonary disease demonstrated. Zaid Lopez MD Objective Remarks GENERAL: This is a well-nourished, well-developed patient, in no apparent distress. SKIN: No rashes, ecchymoses or lesions. Cool and dry. HEAD: Atraumatic. Normocephalic. No temporal or scalp tenderness. EYES: Pupils equal round and reactive. Extraocular motions intact. No scleral icterus. No injection or drainage. ENT: Nose without bleeding, purulent drainage or septal hematoma. Throat without erythema, tonsillar hypertrophy or exudate. Uvula midline. Airway patent. NECK: Trachea midline. No JVD or lymphadenopathy. Supple, nontender, no meningeal signs. CARDIOVASCULAR: Tachycardic. Regular rate and rhythm without murmurs, gallops, or rubs. RESPIRATORY: Clear to auscultation. Breath sounds equal bilaterally. No wheezes , rales, or rhonchi. GASTROINTESTINAL: Abdomen soft, non-tender, nondistended. No hepato-splenomegaly , or palpable masses. No guarding. MUSCULOSKELETAL: Extremities without clubbing, cyanosis, or edema. No joint tenderness, effusion, or edema noted. No calf tenderness. Negative Homans sign bilaterally. NEUROLOGICAL: Awake and alert. Cranial nerves II through XII intact. Motor and sensory grossly within normal limits. Five out of 5 muscle strength in all muscle groups. Normal speech. A/P Assessment and Plan Atrial flutter with rapid ventricular response, with a rate of 150 on admission Hypertension Chronic back pain Bilateral renal mass indicated MRI for further evaluation. Patient will have MRI as outpatient Received adenosine in the emergency room, also metoprolol, Cardizem, he was also placed on esmolol however she has blood pressure is noted persistent low. Discontinued esmolol. Started on amiodarone bolus followed by amiodarone drip. Discussed with Dr. Marquez cardiology following. Consult medical accounts receivable specialist Dr. Crain for evaluation of ablation this patient with persistent atrial flutter. NPO plan for EP evaluation On heparin drip Restart home medications as appropriate. Hold lisinopril if systolic blood pressure lower than 110 DVT prophylaxis on heparin drip Discussed Condition With Discussed with the patient, nurse Sandra Avila MD Jun 16, 2017 07:53
[2017-06-16] MEDS: DOCUSATE SODIUM 50 MG/SENNA 8.6 MG TAB PO SCH ×2 (08:35→21:00)
[2017-06-16] MEDS: HEPARIN-D5W 25,000 U/250 ML 250 ML IV PRN ×2 (08:38→10:49)
[2017-06-16] MEDS: SODIUM CHLORIDE 0.9% FLUSH 10 ML FLUSH IV FLUSH SCH ×2 (08:39→21:00)
[2017-06-16] MEDS ORDERED: LISINOPRIL 10 MG TAB PO SCH (09:00)
[2017-06-16] MEDS: AMIODARONE INJ 450 MG in SODIUM CHLOR 0.9% (EXCEL) INJ 241 ML IV PRN (09:01)
--- NOTE | 2017-06-16 09:41 | MB ---
cc: Juno Marquez DO DATE: 06/15/2017 REASON FOR CONSULTATION: Atrial flutter with rapid ventricular response. HISTORY OF PRESENT ILLNESS: Yossi Moses is a pleasant 52-year-old male who presented to [facility] Emergency Room on 06/15/2017 due to palpitations, shortness of breath, nausea and vomiting. Around 2 a.m. on 06/15/2017, he was awoken from his sleep due to nausea and vomiting. He states that as he was up and walking around, he felt like his heart was racing and he was more short of breath. He denies any chest pains. He thought this was initially secondary to eating brussel sprouts. As his symptoms continued, he felt that he should come in to the emergency room. On arrival, he was found to be in atrial flutter with a rapid ventricular response. They attempted to give him IV Lopressor which did not change his heart rate. He was then given 6 and 12 of adenosine and rhythm strip showed a decrease in his heart rate with what appears to be atrial flutter. He was started on esmolol bolus, as there is a Cardizem shortage. After being placed on the esmolol bolus, he had been somewhat hypotensive and this has since been stopped. From that point, I gave him amiodarone bolus and started on amiodarone drip. In seeing him, he is currently sleeping, with no symptoms as his heart rate is around 120-130 beats per minute. PAST MEDICAL HISTORY: 1. Hypertension. 2. Chronic back pain. PAST SURGICAL HISTORY: Left middle finger tendon repair. ALLERGIES: BEE VENOM PROTEIN. MEDICATIONS: 1. Lisinopril 10 mg daily. 2. Ellerbe every 6 hours as needed for pain. FAMILY HISTORY: Father had a triple bypass and has a history of hypertension. Mother had lymph node cancer, adrenal cancer and hypertension. SOCIAL HISTORY: The patient drinks alcohol occasionally. He smokes 1-2 packs of cigarettes a day. Denies substance abuse. REVIEW OF SYSTEMS: Fourteen systems were reviewed including osteopathic, pertinent positives and negatives above, otherwise negative. PHYSICAL EXAMINATION: VITAL SIGNS: Temperature 98.0, heart rate 130, blood pressure 98/67, respirations 20, pulse oximetry 99% on 2 liters. GENERAL: The patient appears well, in no acute distress, alert, awake and oriented x 3. HEENT: Extraocular muscles intact. Mucous membranes moist. NECK: Supple. No JVD at 45 degrees. No carotid bruits heard bilaterally. Carotid upstroke is brisk in nature. HEART: Tachycardic. Positive first and second heart sounds, with no noted murmurs, gallops or rubs. LUNGS: Clear to auscultation bilaterally. No wheezes, rales or rhonchi. ABDOMEN: Soft, nontender, nondistended. No organomegaly noted. EXTREMITIES: Show no clubbing, cyanosis or edema. Femoral and distal pulses intact bilaterally. NEUROLOGIC: No focal deficits. SKIN: Warm, dry and intact. OSTEOPATHIC: No kyphoscoliosis, lordosis or paraspinal tender points. LABORATORY DATA: Hemoglobin 14.3, hematocrit 41.0, platelets 207. Potassium 4.2, BUN 19, creatinine 1.1. Troponin less than 0.02. TSH 1.57. ELECTROCARDIOGRAM (06/15/2017 AT 0553): Atrial flutter with a 2:1 block and rapid ventricular response, left anterior fascicular block, nonspecific ST-T wave changes. IMPRESSION: 1. Atrial flutter with 2:1 block, with rapid ventricular response. 2. History of hypertension. 3. Chronic back pain. RECOMMENDATIONS: 1. Mr. Moses presented with atrial flutter, with rapid ventricular response, which has been difficult to control. 2. He has been mildly hypotensive and has been unable to be placed on further AV ho blocking agents due to this. We will continue him on an amiodarone drip and if blood pressure allows for, attempt to use further AV ho blocking agent. 3. As he is currently hemodynamically stable, I would prefer not to cardiovert him, as there is always a chance of stroke. If at any time he becomes hemodynamically unstable or has chest pain due to the elevated heart rates, he may need a cardioversion. 4. I will place a consult for Dr. Altamirano and leave the patient n.p.o. in the morning for consideration of atrial flutter ablation. This was discussed with the patient, who is in agreement. 5. The patient is currently on a heparin drip and we will continue it at this time. 6. As he was previously on lisinopril for his hypertension, this will be held until after the procedure due to his current hypotension. 7. Further recommendations will be made based on the hospital course. Thank you for allowing me to see Yossi Moses. If there are any questions, please do not hesitate to call. DO HILARY Leigh/EDYTA , 11:11 PM , 11:53 PM
[2017-06-16] MEDS ORDERED: PNEUMOCOCCAL POLYVALENT INJ 25 MCG/0.5 ML SYR IM ONE (10:00)
[2017-06-16] MEDS ORDERED: SODIUM CHLOR 0.9% 250 ML INJ 250 ML IV ONE (11:00)
--- NOTE | 2017-06-16 11:11 | PD.CARD.PN ---
Subjective Subjective Remarks No events overnight No chest pain Mild SOB Aflutter with RVR overnight Objective Medications Current Medications Medications (Trade) Dose Ordered Sig/Barney Route Start Time Stop Time Status Last Admin Esmolol HCl/ Sodium Chloride 250 ml @ 0 mls/hr TITRATE PRN IV 06/15/17 07:45 06/15/17 10:05 (Heparin Inj) 5,000 units UNSCH PRN IV 06/15/17 14:15 (Heparin Inj) 2,500 units UNSCH PRN IV 06/15/17 14:15 06/16/17 10:57 Heparin Sodium/ Dextrose 250 ml @ 10 mls/hr TITRATE PRN IV 06/15/17 08:15 06/16/17 10:49 (NS Flush) 2 ml UNSCH PRN IV FLUSH 06/15/17 08:45 (NS Flush) 2 ml BID IV FLUSH 06/15/17 09:00 (Tylenol) 650 mg Q4H PRN PO 06/15/17 08:45 (Zofran Inj) 4 mg Q6H PRN IVP 06/15/17 08:45 (Narcan Inj) 0.4 mg UNSCH PRN IV PUSH 06/15/17 08:45 (Anisa-Colace) 1 tab BID PO 06/15/17 09:00 06/16/17 08:35 (Milk Of Magnesia Liq) 30 ml Q12H PRN PO 06/15/17 08:45 (Senokot) 17.2 mg Q12H PRN PO 06/15/17 08:45 (Dulcolax Supp) 10 mg DAILY PRN RECTAL 06/15/17 08:45 (Lactulose Liq) 30 ml DAILY PRN PO 06/15/17 08:45 ([place] 5-325 Mg) 1 tab Q6H PRN PO 06/15/17 08:45 06/16/17 03:39 Amiodarone HCl 450 mg/Sodium Chloride 250 ml @ 33.33 mls/ hr Q7H31M PRN IV 06/15/17 12:00 06/16/17 09:01 (Ativan) 0.5 mg Q8H PRN PO 06/15/17 15:15 06/15/17 15:27 Vital Signs / I&O Vital Signs Date Time Temp Pulse Resp B/P (MAP) Pulse Ox O2 Delivery O2 Flow Rate FiO2 06/16/17 09:01 135 89/61 06/16/17 08:00 97.4 139 18 89/61 (70) 96 06/16/17 07:49 92 Nasal Cannula 21 06/16/17 05:52 85 06/16/17 05:39 97 06/16/17 05:26 119 06/16/17 05:00 109 06/16/17 04:00 135 06/16/17 03:10 102 06/16/17 03:00 98.2 102 20 102/74 (83) 94 06/16/17 02:00 105 06/16/17 02:00 130 18 88/57 (67) 96 06/16/17 01:39 97 06/16/17 01:00 130 06/16/17 00:39 87 06/16/17 00:35 96 18 91/63 (72) 96 06/16/17 00:10 98.5 133 20 95/68 (77) 94 06/16/17 00:00 130 06/15/17 23:30 133 20 92/62 (72) 94 06/15/17 23:20 133 06/15/17 23:20 133 20 100/70 (80) 94 06/15/17 22:00 130 06/15/17 21:00 138 06/15/17 21:00 130 06/15/17 20:00 98.3 140 20 108/70 (83) 95 06/15/17 20:00 140 18 19:19 97 06/15/17 19:00 140 18 19:00 140 108/70 18 18:19 139 18 17:02 131 18 16:50 18 06/15/17 16:01 142 18 15:03 98.3 142 18 91/51 (64) 95 06/15/17 15:03 140 06/15/17 14:09 140 18 13:31 98.3 138 18 115/62 (79) 95 06/15/17 13:29 138 18 12:45 98.0 131 20 98/67 (77) 99 Nasal Cannula 2.00 06/15/17 12:37 98.2 138 15 97/56 (70) 98 Nasal Cannula 2.00 06/15/17 11:50 133 93/52 06/15/17 11:37 139 92/55 I/O 06/15/17 06/15/17 06/15/17 06/16/17 06/16/17 06/16/17 07:00 15:00 23:00 07:00 15:00 23:00 Intake Total 2006 ml 480 ml 1006 ml 117 ml Output Total 400 ml 2300 ml Balance 2006 ml 80 ml -1294 ml 117 ml Intake Oral 300 ml 480 ml 660 ml IV Total 1706 ml 346 ml 117 ml Output Urine Total 400 ml 2300 ml # Voids 1 # Bowel Movements 1 0 Physical Exam GENERAL: NAD, AAOx3 SKIN: Warm and dry. HEAD: Atraumatic. Normocephalic. EYES: Pupils equal and round. No scleral icterus. No injection or drainage. ENT: No nasal bleeding or discharge. Mucous membranes pink and moist. NECK: Trachea midline. No JVD. CARDIOVASCULAR: Regular, tachycardic RESPIRATORY: No accessory muscle use. Clear to auscultation. Breath sounds equal bilaterally. GASTROINTESTINAL: Abdomen soft, non-tender, nondistended. Hepatic and splenic margins not palpable. MUSCULOSKELETAL: Extremities without clubbing, cyanosis, or edema. No obvious deformities. NEUROLOGICAL: Awake and alert. No obvious cranial nerve deficits. Motor grossly within normal limits. Five out of 5 muscle strength in the arms and legs. Normal speech. PSYCHIATRIC: Appropriate mood and affect; insight and judgment normal. Laboratory Laboratory Tests Test 06/15/17 18:55 06/16/17 02:26 06/16/17 09:23 Activated Partial Thromboplast Time 25.3 SEC 25.6 SEC 26.4 SEC White Blood Count 8.0 TH/MM3 Red Blood Count 4.29 MIL/MM3 Hemoglobin 14.3 GM/DL Hematocrit 41.4 % Mean Corpuscular Volume 96.5 FL Mean Corpuscular Hemoglobin 33.5 PG Mean Corpuscular Hemoglobin Concent 34.7 % Red Cell Distribution Width 12.9 % Platelet Count 184 TH/MM3 Mean Platelet Volume 10.3 FL Neutrophils (%) (Auto) 55.1 % Lymphocytes (%) (Auto) 30.2 % Monocytes (%) (Auto) 9.7 % Eosinophils (%) (Auto) 4.2 % Basophils (%) (Auto) 0.8 % Neutrophils # (Auto) 4.4 TH/MM3 Lymphocytes # (Auto) 2.4 TH/MM3 Monocytes # (Auto) 0.8 TH/MM3 Eosinophils # (Auto) 0.3 TH/MM3 Basophils # (Auto) 0.1 TH/MM3 CBC Comment DIFF FINAL Differential Comment Blood Urea Nitrogen 16 MG/DL Creatinine 0.97 MG/DL Random Glucose 107 MG/DL Calcium Level 8.0 MG/DL Sodium Level 142 MEQ/L Potassium Level 4.4 MEQ/L Chloride Level 112 MEQ/L Carbon Dioxide Level 25.9 MEQ/L Anion Gap 4 MEQ/L Estimat Glomerular Filtration Rate 82 ML/MIN Assessment and Plan Problem List: (1) Atrial flutter with rapid ventricular response ICD Codes: I48.92 - Unspecified atrial flutter Status: Acute (2) Tobacco use disorder ICD Codes: Z72.0 - Tobacco use disorder Status: Acute (3) Essential hypertension ICD Codes: I10 - Essential hypertension Status: Acute (4) Obesity ICD Codes: E66.9 - Obesity Status: Acute Assessment and Plan 1) Aflutter with RVR Amiodarone drip Will plan to give light fluids and if BP up with attempt to give BB therapy Responded last night 2) Plan for possible ablation by Dr. Crain 3) Heparin drip 4) 2D echo pending 5) Tobacco cessation greater than 3 minutes Juno Marquez DO Jun 16, 2017 11:11
[2017-06-16] MEDS ORDERED: METOPROLOL TARTRATE 25 MG TAB PO ONE (11:45)
[2017-06-16] MEDS ORDERED: DEXAMETHASONE SOD PHOS 4 MG/ML VIAL IV ONE (12:00)
[2017-06-16] MEDS ORDERED: LIDOCAINE HCL 1% PF 5 ML SYRINGE OTHER ONE (12:00)
[2017-06-16] MEDS ORDERED: ONDANSETRON HCL 4 MG/2 ML VIAL IV ONE (12:00)
[2017-06-16] MEDS ORDERED: PHENYLEPH/NS 1000 MCG/10 ML SYR IV ONE (12:00)
[2017-06-16] MEDS ORDERED: PROPOFOL 200 MG/20 ML AMP IV ONE (12:00)
[2017-06-16] MEDS ORDERED: SUCCINYLCHOLINE CHLORIDE 200 MG/10 ML VIAL IV ONE (12:00)
[2017-06-16] MEDS ORDERED: ePHEDrine/NS 25 MG/5 ML SYRINGE IV ONE (12:00)
[2017-06-16] MEDS: ESMOLOL DRIP INJ PREMIX 250 ML IV PRN (15:22)
--- NOTE | 2017-06-16 17:17 | ECHRPT ---
Indication: ATRIAL FLUTTER CONCLUSIONS Normal left ventricular size. Moderate concentric left ventricular hypertrophy. The left ventricular systolic function is moderately reduced with an estimated ejection fraction in the range of 35-40%. The left atrial size is mildly dilated. The right atrial size is plzw-er-reqzdgkone dilated. BP: / HR: 97 Rhythm: Atrial flutter MEASUREMENTS (Male / Female) Normal Values Technical Quality:Fair 2D ECHO LV Diastolic Diameter PLAX 5.1 cm 4.2 - 5.9 / 3.9 - 5.3 cm LV Systolic Diameter PLAX 4.3 cm IVS Diastolic Thickness 1.5 cm 0.6 - 1.0 / 0.6 - 0.9 cm LVPW Diastolic Thickness 1.5 cm 0.6 - 1.0 / 0.6 - 0.9 cm LV Relative Wall Thickness 0.6 RV Internal Dim ED PLAX 2.6 cm LVOT Diameter 2.7 cm Aortic Root Diameter 3.8 cm LA Systolic Diameter LX 3.9 cm 3.0 - 4.0 / 2.7 - 3.8 cm DOPPLER AV Peak Velocity 77.2 cm/s AV Peak Gradient 2.4 mmHg AV Mean Gradient 1.0 mmHg AV Velocity Time Integral 8.7 cm LVOT Peak Velocity 62.4 cm/s LVOT Peak Gradient 1.6 mmHg LVOT Velocity Time Integral 8.7 cm AV Area Cont Eq vti 5.7 cm AV Area Cont Eq pk 4.6 cm Mitral E Point Velocity 28.6 cm/s Mitral A Point Velocity 67.1 cm/s Mitral E to A Ratio 0.4 LV E' Lateral Velocity 3.6 cm/s Mitral E to LV E' Lateral Ratio 7.9 LV E' Septal Velocity 6.6 cm/s Mitral E to LV E' Septal Ratio 4.3 PV Peak Velocity 51.1 cm/s PV Peak Gradient 1.0 mmHg FINDINGS LEFT VENTRICLE Normal left ventricular size. Moderate concentric left ventricular hypertrophy. The left ventricular systolic function is moderately reduced with an estimated ejection fraction in the range of 35-40%. RIGHT VENTRICLE Normal right ventricular size and systolic function. LEFT ATRIUM The left atrial size is mildly dilated. RIGHT ATRIUM The right atrial size is hczf-yo-bvzhzuciel dilated. ATRIAL SEPTUM The interatrial septum not well visualized. AORTA The aortic root and proximal ascending aorta are not well visualized. MITRAL VALVE Structurally normal mitral valve. No mitral valve stenosis or regurgitation. AORTIC VALVE Trileaflet aortic valve. No aortic valve stenosis or regurgitation. TRICUSPID VALVE The tricuspid valve is not well visualized. PULMONARY VALVE The pulmonary valve is not well visualized. VESSELS The inferior vena cava was not well visualized. PERICARDIUM No pericardial effusion. Wendy Maciel MD, FACC (Electronically Signed) Final Date:16 June 2017 17:16
[2017-06-16] MEDS ORDERED: HEPARIN-NS/PF FLUSH BAG 1,000 ML IV FLUSH ONE (18:29)
[2017-06-16] MEDS ORDERED: HEPARIN-NS/PF FLUSH BAG 2,000 ML IV FLUSH ONE (18:37)
[2017-06-16] MEDS ORDERED: LIDOCAINE HCL 1% PF 30 ML VIAL ONE (18:42)
[2017-06-16] MEDS ORDERED: ISOPROTERENOL HCL 0.2 MG/ML AMP IV ONE (19:08)
[2017-06-16] MEDS ORDERED: METOCLOPRAMIDE HCL 10 MG/2 ML VIAL IV PUSH PRN (19:45)
[2017-06-16] MEDS ORDERED: SODIUM CHLOR 0.9% 250 ML INJ 250 ML IV PRN (19:45)
[2017-06-16] MEDS ORDERED: ATROPINE SULFATE 1 MG/ML VIAL IV PUSH PRN (19:45)
[2017-06-16] MEDS ORDERED: LIDOCAINE HCL 1% 50 ML VIAL INFIL PRN (19:45)
[2017-06-16] MEDS ORDERED: BACITRACIN OINT 0.9 GM PKT TOP ONE (19:45)
[2017-06-16] MEDS ORDERED: LORazepam 2 MG/ML VIAL IV PUSH PRN (19:45)
[2017-06-16] MEDS ORDERED: ONDANSETRON HCL 4 MG/2 ML VIAL IV PUSH PRN (19:45)
--- NOTE | 2017-06-16 19:57 | CATHPROC ---
Patient Name: CARLOS WEEKS Study #: [id number] Initial MD: Dustin Crain Date of : 1965 Study Date: 06/16/2017 Cardiac Catheterization Report 06/16/2017 7:57:12 PM Financial #: [id number] 1 of 8 Patient Name: CARLOS WEEKS Study #: [id number] Initial MD: Dustin Crain Date of : 1965 Study Date: 06/16/2017 Entire Case Report Patient Information Patient Name CARLOS WEEKS Date of 1965 Age 52 years Financial # [id number] Gender M AlternateID Lab Number 2 Room Number 451 Height (in) 71.0 Height (cm) 180.3 BSA 2.61 Weight (lbs) 331.1 Weight (kg) 150.5 Patient Address/Phone Number Home Address [facility] Home Phone Number [address] [facility] [address] [facility] Study Information Study Number Admission Scheduled Start Study Start [id number] Jun 15 2017 8:35AM 06/16/2017 Jun 16 2017 6:04PM Loman Service Electrophysiology Study Admit Source Facility Department Other [facility] - Developer [employer] Physician and Clinical Staff Initial Dustin Wise Diving Supervisor Luis Enrique Rush,RT(R) Other Anesthesia, BLUEPRINT BLOCKER Recorder Mae Zhang,RN Recorder Kaia Miller,MICHELE Scrub Haleigh Velasquez RCIS Procedures Performed Procedure Location (Site) Vessel Name RF Ablation Isthmus Other 06/16/2017 7:57:12 PM Financial #: [id number] 2 of 8 Patient Name: CARLOS WEEKS Study #: [id number] Initial MD: Dustin Crain Date of : 1965 Study Date: 06/16/2017 Equipment Time Railroad Signal Technician Description Size Mfg Part Number Used/Scraped BIOSENSE ESPINOZA CATHETER, CELSIUS DS, 8MM, F [id number] 19:05 FR 7 Used INC. TYPE QUAD *[id number] 18:10 MEDLINE INDUSTRIES PACK, CCL CUSTOM * Used *[id number] 18:10 MEDLINE PACER OCASIO, LIMB * 2530 *[id number] Used [id number] 18:10 TOBIAS MEDICAL BLANKET,WARM AIR CCL * Used *[id number] 18:17 ST. JJ MEDICAL CATHETER, JSN, QUAD FR 5 Used *[id number] 18:17 ST. JJ MEDICAL CATHETER, JSN, QUAD FR 5 Used *[id number] 18:17 [employer]. JJ MEDICAL CATHETER, JSN, QUAD FR 5 Used *[id number] 168512 18:17 ST. JJ MEDICAL CATHETER, JSN, QUAD FR 5 Used *[id number] 18:10 ST. JJ MEDICAL ELECTRODE KIT, BETZAIDA X SURFACE * Used *[id number] 263394 18:17 ST. JJ MEDICAL SHEATH, EPS, FR5 FAST CATH FR 5 Used *[id number] 939214 18:17 ST. JJ MEDICAL SHEATH, EPS, FR5 FAST CATH FR 5 Used *[id number] 324673 18:17 ST. JJ MEDICAL SHEATH, EPS, FR5 FAST CATH FR 5 Used *[id number] 820785 18:17 ST. JJ MEDICAL SHEATH, EPS, FR6 FAST CATH FR 6 Used *[id number] 149434 18:17 ST. JJ MEDICAL SHEATH, EPS, FR8 FAST CATH FR 8 Used *[id number] [facility] PAD, ELECTROSURGICAL 18:10 * [id number] *[id number] Used SURGICAL GROUNDING (BLUE) Insurance Information Insurance Payor None Third Republican Third Republican Number SELF PAY SP Medication Medication Total Dose (Bolus/Oral) Medication Total Dosage/Unit 1% XYLOCAINE 40 mL BREVIBLOC 200 mcg/kg/min 06/16/2017 7:57:12 PM Financial #: [id number] 3 of 8 Patient Name: CARLOS WEEKS Study #: [id number] Initial MD: Dustin Crain Date of : 1965 Study Date: 8 Medications (Bolus/Oral) Medication Time Given Dosage/Unit Administered By Reason BREVIBLOC 06/16/2017 6:22:18 PM 200 mcg/kg/min Patient arrived on 200 mcg/kg/min BREVIBLOC in Right Hand via Peripheral IV. Pump/Drip Flow = 180.6 m l/hr using D5W with a concentration of 2500 mg in 250 ml. 1% XYLOCAINE 06/16/2017 7:00:49 PM 20 mL Dustin Crain 20 mL 1% XYLOCAINE given in lab by Dustin Crain in Left Groin via Subcutaneous. 1% XYLOCAINE 06/16/2017 7:02:38 PM 20 mL Dustin Crain 20 mL 1% XYLOCAINE given in lab by Dustin Crain in Right Groin via Subcutaneous. Medication (Drip) Medication Time Given Dosage/Unit Concentration/Unit Diluent (ml) Solution Amiodarone Drip 06/16/2017 6:22:17 PM 0.5 mg/min 450 mg 250 D5W Patient arrived on 0.5 mg/min Amiodarone Drip in Right Hand via Peripheral IV. Pump/Drip Flow = 16.67 ml/hr using D5W with a concentration of 450 mg in 250 ml. ISUPREL 06/16/2017 7:15:50 PM 5 mcg/min 1 mg 250 NaCl .9 5 mcg/min ISUPREL given in lab by Dustin Crain via Peripheral IV. Pump/Drip Flow = 75 ml/hr using Na Cl .9 with a concentration of 1 mg in 250 ml. Initial Case Assessment Cardiovascular HR Rhythm NIBP Chest Pain 128 A FLUTTER 118/80 0 Edema Present Skin color Skin None Normal Warm Dry Circulatory - Right Pulses Dorsalis Pedis 1 Scale (0,1,2,3,4,d) Circulatory - Left Pulses Dorsalis Pedis 1 Scale (0,1,2,3,4,d) Neurological State Oriented to time-place- Alert Moves all extremities person Respiration - General Respiration Rate SpO2 (%) (B/min) 18 99 06/16/2017 7:57:12 PM Financial #: [id number] 4 of 8 Patient Name: CARLOS WEEKS Study #: [id number] Initial MD: Dustin Crain Date of : 1965 Study Date: 06/16/2017 Final Case Assessment Cardiovascular HR Rhythm NIBP Chest Pain 87 sr 90/50 0 Edema Present Skin color Skin None Normal Warm Dry Circulatory - Right Pulses Dorsalis Pedis 1 Scale (0,1,2,3,4,d) Circulatory - Left Pulses Dorsalis Pedis 1 Scale (0,1,2,3,4,d) Circulatory - Lower Extremities Color Lower Right Color Lower Left Normal Normal Neurological State Oriented to time-place- Alert Moves all extremities person Respiration - General Respiration Rate SpO2 (%) O2 (lpm) (B/min) 20 96 6 Chronological Log Time Study Chronological Log 18:22:16 Patient arrived via Bed. 18:22:16 Patient Name, D.O.B, / Armband Verified By R.N. Patient arrived on 0.5 mg/min Amiodarone Drip in Right Hand via Peripheral IV. Pump/Drip Flow = 16.67 ml/hr using 18:22:17 D5W with a concentration of 450 mg in 250 ml. 18:22:17 Consent signed by the physician and the patient and verified by the Developer [employer] staff. Patient arrived on 200 mcg/kg/min BREVIBLOC in Right Hand via Peripheral IV. Pump/Drip Flow = 1 80.6 ml/hr using 18:22:18 D5W with a concentration of 2500 mg in 250 ml. 18:22:18 Pre-op and post- op instructions given; patient acknowledges understanding of instructions. 18:22:19 Verbal Stimulation=2 Physical Stimulation=2 Airway=2 Respiration=2 TOTAL=8. (0=absent, 1=li mited, 2=present) 18:22:32 Patient has been NPO for More than 6Hrs. 18:22:38 Skin Breakdown- NONE PER PT 06/16/2017 7:57:12 PM Financial #: [id number] 5 of 8 Patient Name: CARLOS WEEKS Study #: [id number] Initial MD: Dustin Crain Date of : 1965 Study Date: 06/16/2017 18:22:46 Patient Warmer Placed on the Table. 18:22:47 Disposable Defibrillator Pads Placed On Patient. 18:22:48 Deni Prominences Protected 18:22:50 A # 20 IV was noted in the Antecubital (right). Grade = 0 18:22:51 A # 20 IV was noted in the Hand (left). Grade = 0 18:22:52 History and physical on the chart or being dictated. Anesthesia at bedside. Assumes care of patient. HERNAN GLEZ RECORDS FOR ALL MEDS AND VITALS DUR ING 18:22:55 PROCEDURE Assessment: Initial Case, GO=157 BPM, Rhythm=A FLUTTER, NKAM=866/80 mmhg, Chest Pain=0, Edema=N one, Color=Normal, Skin = Warm, Dry Right Pulses: Barak Ped=1 18:39:48 Left Pulses: Barak Ped=1 Neurological: State=Alert, Ox3, AVILES Respiration: Resp=18 B/min, SpO2=99 % 18:41:10 Table restraints applied according to hospital policy 18:41:14 Bilateral groins prepped with 2% chlorhexidine, and draped after a 3 minute waiting time. 18:41:57 Reference ECG taken 18:47:31 MD paged 18:49:35 MD responded Time Out. Correct patient, procedure, procedure equipment, site and side verified with physicia n present. Time 19:00:39 concurred by MD, individual staff and BLUEPRINT BLOCKER. Time Out #2 - Consents verified, patient in correct position, all results are labled and displa yed, safety precautions 19:00:40 taken, antibiotics administered. Time out concurred by MD, individual staff and BLUEPRINT BLOCKER in procedu re 19:00:42 Case Start 19:00:49 20 mL 1% XYLOCAINE given in lab by Dustin Crain in Left Groin via Subcutaneous. 19:01:33 Vascular access was obtained in the Fem Vein (left). 19:01:35 Vascular access was obtained in the Fem Vein (left). 19:01:36 Vascular access was obtained in the Fem Vein (left). 19:01:46 A SHEATH, EPS, FR5 FAST CATH FR 5 was advanced into the Fem Vein (left) using the Modified Seldinger technique. 19:01:56 A SHEATH, EPS, FR5 FAST CATH FR 5 was advanced into the Fem Vein (left) using the Modified Seldinger technique. 19:02:00 A SHEATH, EPS, FR5 FAST CATH FR 5 was advanced into the Fem Vein (left) using the Modified Seldinger technique. 19:02:38 20 mL 1% XYLOCAINE given in lab by Dustin Crain in Right Groin via Subcutaneous. 19:02:52 Vascular access was obtained in the Fem Vein (right). 19:02:54 Vascular access was obtained in the Fem Vein (right). 19:03:01 A SHEATH, EPS, FR6 FAST CATH FR 6 was advanced into the Fem Vein (right) using the Modified Seldinger technique. 19:03:08 A SHEATH, EPS, FR8 FAST CATH FR 8 was advanced into the Fem Vein (right) using the Modified Seldinger technique. A CATHETER, JSN, QUAD FR 5 was advanced vis Fem Vein (right) and placed in the CS. Placement wa s visually 19:05:11 confirmed under fluoroscopy. A CATHETER, JSN, QUAD FR 5 was advanced vis Fem Vein (left) and placed in the HIS. Placement wa s visually 19:05:27 confirmed under fluoroscopy. A CATHETER, JSN, QUAD FR 5 was advanced vis Fem Vein (left) and placed in the HRA. Placement wa s visually 19:05:35 confirmed under fluoroscopy. 06/16/2017 7:57:12 PM Financial #: [id number] Patient Name: CARLOS WEEKS Study #: [id number] Initial MD: Dustin Crain Date of : 1965 Study Date: 06/16/2017 A CATHETER, JSN, QUAD FR 5 was advanced vis Fem Vein (left) and placed in the RVA. Placement w as visually 19:05:42 confirmed under fluoroscopy. A CATHETER, CELSIUS DS, 8MM, F TYPE QUAD FR 7 was advanced vis Fem Vein (right) and placed in the Isthmus. 19:07:26 Placement was visually confirmed under fluoroscopy. 19:07:43 EP STUDY IN PROGRESS 19:08:08 RF Ablation of the Isthmus with a CATHETER, CELSIUS DS, 8MM, F TYPE QUAD FR 7. 19:12:02 PATIENT CONVERTED TO SR 5 mcg/min ISUPREL given in lab by Dustin Crain via Peripheral IV. Pump/Drip Flow = 75 ml/hr u sing NaCl .9 with a 19:15:50 concentration of 1 mg in 250 ml. 19:17:26 PACU called. Spoke to GLENNA 19:17:35 Bedside Report will be given. 19:27:51 Monitor SR. 19:27:51 ISUPREL OFF. 19:30:35 Breviblock and Amiodarone drips off per Dr Crain's order. 19:30:55 All Catheter(s) removed without difficulty 19:32:59 Activated Clotting Time Drawn. Heparin was turned off at 14:00 on the floor. 19:33:53 ACT (Normal Range 90-180) = 109 19:34:03 Right groin Sheaths removed; pressure applied to access sites by DC. 19:34:25 Left groin Sheaths removed; pressure applied to access sites by DB.. 19:50:00 Extubated. to pacu w administrative secretary and o2. 19:50:12 Sterile dressings applied to sites. Site wnl. 19:51:39 Case End 19:51:40 No case complications noted. 19:51:41 Cine recording checked. Assessment: Final Case, HR=87 BPM, Rhythm=sr, NIBP=90/50 mmhg, Chest Pain=0, Edema=None, Color =Normal, Skin = Warm, Dry Right Pulses: Barak Ped=1 Left Pulses: Barak Ped=1 19:51:46 Lower Right Extremities: Color=Normal Lower Left Extremities: Color=Normal Neurological: State=Alert, Ox3, AVILES Respiration: Resp=20 B/min, SpO2=96 %, O2=6 lpm End Study - Contrast Media Used In Study Contrast Total Opened (mL) Total Used (mL) Total Wasted (mL) Unspecified 0 0 0 06/16/2017 7:57:12 PM Financial #: [id number] 7 of 8 Patient Name: CARLOS WEEKS Study #: [id number] Initial MD: Dustin Crain Date of : 1965 Study Date: 06/16/2017 End Study - Radiation Exposure Fluoro Time (minutes) 2.5 End Study - Patient Disposition Complications Transferred To Interventional Outcome No Telemetry Bed successful 06/16/2017 7:57:12 PM Financial #: [id number] 8 of 8
--- NOTE | 2017-06-16 20:12 | MA ---
cc: Dustin Crain MD DATE: 06/16/2017 PROCEDURES PERFORMED: Electrophysiology study, CS cannulation, 3-D mapping, radiofrequency ablation of atrial flutter. INDICATIONS: Mr. Moses is a 52-year-old gentleman, atrial flutter, unable to control with medication. Referred for electrophysiology study and ablation. The risks, the nature and the benefits of the procedure were clearly stated to him. Risks include pneumothorax, cardiac perforation, stroke and even . The patient understood and agreed to proceed. PROCEDURE IN DETAIL: After written informed consent was obtained, the patient was brought to the EP lab where he was prepped and draped in the usual sterile fashion. Conscious sedation was initiated and maintained throughout the procedure by anesthesiologist. Once sedation verified, the left and right inguinal areas were anesthetized with 2% Xylocaine. Using modified Seldinger technique, the left femoral vein was cannulated on 3 occasions. Three guidewires were advanced over the wire. Three 5-[place] Hemaquets were advanced. Then, the left femoral vein was cannulated on 2 occasions. Two guidewires were advanced over the wire and a 6 and an 8-[place] Hemaquet wire advanced. Then, under fluoroscopic guidance, through the 5 and 6-[place] Hemaquet, four 5-[place] Patricia curved quadripolar electrophysiology catheters advanced and placed on the His, upper right atrium, coronary sinus and right ventricular apex. Basic intervals were measured. The patient was in atrial flutter. Flutter was entrained. Entrainment was positive. Then, through the 8-[place] Hemaquet, a Cordis Santos F-curve 8 mm mapping and radiofrequency ablation catheter was advanced. Using Hochy eto endocardial solution mapping system, a 3-dimensional configuration of the right atrium was obtained. Then, the catheter was placed at the tricuspid valve annulus. Radiofrequency energy was delivered. During ablation, patient converted into sinus rhythm. Further burn was delivered in the area. Then, atrial pacing protocol was performed. No tachyarrhythmia was induced. coronary sinus up to 220 msec cycle length. No tachyarrhythmia was induced. Then, Isuprel 10 mcg IV. No tachyarrhythmia was induced. At that point, the procedure was complete. All catheters were removed. The patient is going to be transferred to the recovery room. Amiodarone and esmolol will be discontinued. No incident to report. The patient tolerated the procedure. Blood loss minimal. 1. Electrocardiogram: At baseline, the patient was in atrial flutter. Postprocedure, the patient in sinus rhythm. 2. Basic interval base: Cycle length was around 480 msec. Post-ablation, it was with 1050 msec. AH at 80 and HV of 150 msec. 3. Tachyarrhythmia: Atrial flutter was mapped, entrained and ablated. The ablation was successful. CONCLUSION: Successful electrophysiology study, mapping and radiofrequency ablation of atrial flutter. COMMENT AND RECOMMENDATION: The patient is going to be transferred to the recovery room. Will be observed. When stable, can be discharged home. The patient is going to need anticoagulation before discharge home. MD ELOINA Prakash/PENELOPE , 07:36 PM , 08:11 PM
[2017-06-16] MEDS ORDERED: DO NOT ADM ANY ANTICOAGULANT DRUGS PRN (20:15)
[2017-06-16] MEDS: LORazepam 0.5 MG TAB PO PRN (21:33)
[2017-06-16] MEDS: APIXABAN 5 MG TABLET PO SCH (21:33)
[2017-06-17] VITALS (13 sets, daily range): BP systolic 121–128; BP diastolic 65–70; PULSE 66–88; RESP 15–20; TEMP 97.5–98; O2SAT 93–95
[2017-06-17] MEDS: ACETAMINOPHEN/HYDROcodone 325 MG/5 MG TAB PO PRN ×2 (03:43→09:39)
[2017-06-17 05:15] LABS: AUTOMATED NEUTROPHIL # 7.8 TH/MM3 (1.8-7.7); BASOPHIL % 0.1 % (0.0-2.0); HEMATOCRIT 40.9 % (39.0-51.0); HEMOGLOBIN 14.1 GM/DL (13.0-17.0); LYMPH % 8.3 % (9.0-44.0); LYMPHOCYTE # 0.7 TH/MM3 (1.0-4.8); MEAN CELL VOLUME 96.7 FL (80.0-100.0); MEAN CORPUSCULAR HEMOGLOBIN 33.3 PG (27.0-34.0); MEAN CORPUSCULAR HGB CONC 34.4 % (32.0-36.0); MEAN PLATELET VOLUME 10.9 FL (7.0-11.0); MONO % 3.3 % (0.0-8.0); MONOCYTE # 0.3 TH/MM3 (0-0.9); NEUT % 88.3 % (16.0-70.0); PLATELET COUNT 190 TH/MM3 (150-450); RED BLOOD COUNT 4.23 MIL/MM3 (4.50-5.90); WHITE BLOOD COUNT 8.8 TH/MM3 (4.0-11.0)
[2017-06-17 05:23] LABS: PROTHROMBIN TIME - PATIENT 10.4 SEC (9.8-11.6)
[2017-06-17 05:37] LABS: BICARBONATE 25.9 MEQ/L (21.0-32.0); CALCIUM 8.8 MG/DL (8.5-10.1); CREATININE 1.11 MG/DL (0.60-1.30); MAGNESIUM 2.1 MG/DL (1.5-2.5)
[2017-06-17] MEDS: APIXABAN 5 MG TABLET PO SCH (08:51)
[2017-06-17] MEDS: DOCUSATE SODIUM 50 MG/SENNA 8.6 MG TAB PO SCH (08:51)
[2017-06-17] MEDS: SODIUM CHLORIDE 0.9% FLUSH 10 ML FLUSH IV FLUSH SCH (08:52)
--- NOTE | 2017-06-17 09:13 | MB ---
cc: Dustin Crain MD DATE: 06/16/2017 REASON FOR CONSULTATION: Atrial flutter, unable to control with medication. HISTORY OF PRESENT ILLNESS: Mr. Sy is a 52-year-old gentleman with morbid obesity, high blood pressure, with chronic back pain, was admitted to the emergency room due to shortness of breath and palpitation. That started around 02:00 a.m. the day before hospitalization. Since admission, IV Cardizem and esmolol as well as metoprolol was given. Heart rate cannot be controlled. The patient is on amiodarone drip. IV Cardizem not available in the hospital for administration due to shortage. The patient was seen today. The chart was given. He was evaluated. ALLERGIES: BEE VENOM PROTEIN. SOCIAL HISTORY: The gentleman smokes 1-2 packs of cigarettes a day. He drinks occasionally. FAMILY HISTORY: Noncontributory to his current medical condition. MEDICATIONS: The gentleman is currently on lorazepam, he is on heparin that was , he is on amiodarone IV. He is on esmolol IV. REVIEW OF SYSTEMS: Currently, the patient is tired on minimal activity, but no chest pain, no chest discomfort, shortness of breath, but no fever. PHYSICAL EXAMINATION: GENERAL: On evaluation around 01:00 p.m. today, was alert, fully oriented. VITAL SIGNS: Blood pressure is adequate 124/79, pulse around 133, respiratory rate 20. LUNGS: Good air entry bilaterally. CARDIOVASCULAR: S1, S2, tachycardic, regular. ABDOMEN: Obese. No mass or bruit. EXTREMITIES: No significant edema. STUDIES: Electrocardiogram showed atrial flutter with ventricular response. Telemetry also shows atrial flutter. LABORATORY DATA: Hemoglobin 14.3, white blood cell 8.0, potassium 4.4, creatinine 0.97. Troponin less than 0.02. ASSESSMENT AND RECOMMENDATIONS: Mr. Moses has atrial flutter, very difficult to control. This morning, blood pressure was so low that fluid has to be given as well as medication. Systolic blood pressure was around 80. Still right now, the heart rate is very difficult to control. The patient has shortness of breath and blood pressure is beginning to decrease. Current blood pressure was in the low 115. At this point, patient needs electrophysiology study and ablation. The risks, the nature and the benefits of the procedure are listed to stated pneumothorax, cardiac perforation, stroke and even . He understood and agreed to proceed. The patient was scheduled for ablation at p.m. Around 04:30, I called, anesthesia not available. I just talked to Solange Auguste, the business services manager from the computer laboratory technician. At this point, I spoke to Sharad Davison, the cardiovascular CSM CONSULTANT and the whole hospital was involved. I am declaring Mr. Moses an emergency. There is lack of Cardizem in the hospital and the rate needs to be controlled. I am waiting for management of the CPCU over the cardiology area management to make further decision. Anesthesia informed and the computer laboratory technician was informed that I am declaring the patient an emergency at this point. MD ELOINA Prakash/EDYTA , 06:00 PM , 06:30 PM
[2017-06-17] MEDS ORDERED: APIX5TAB PO (09:21)
--- NOTE | 2017-06-17 09:22 | HHI.DS ---
Discharge Summary Admission Date Jun 15, 2017 at 08:35 Discharge Date: Jun 17, 2017 Admitting Diagnosis New onset A. fib/A flutter, a flutter with 2-1 block (1) Atrial fibrillation and flutter ICD Code: I48.91 - Unspecified atrial fibrillation; I48.92 - Unspecified atrial flutter (2) Chronic back pain ICD Code: G89.29 - Other chronic pain; M54.9 - Chronic back pain Status: Acute (3) Atypical chest pain ICD Code: R07.89 - Atypical chest pain Status: Acute Procedures EP Study with ablation of atrial flutter Brief History - From Admission Patient is a 52 yo male with PMH of HTN, chronic back pain, presents with chest pain, palpitations, sob, nausea and vomiting which started acutely at 2 AM. It awakened him from sleep. He denies any previous similar history. He initially thought that his symptoms were secondary to eating [place] sprouts. Symptoms persisted causing him to present to ED for further evaluation. Symptoms are very mild. There have been no modifying factors. The patient admits to history of hypertension and previous hyperlipidemia. He states that he is compliant with his antihypertensives. He states that he is no longer on cholesterol medication. He denies any previous heart disease.Says she is complainant in taking his eds for BP and with follow up. CBC/BMP: 06/17/17 0400 06/17/17 0400 Significant Findings Laboratory Tests Test 06/15/17 06:08 06/15/17 09:00 06/15/17 18:55 06/16/17 02:26 Monocytes (%) (Auto) 11.8 % (0.0-8.0) 9.7 % (0.0-8.0) Blood Urea Nitrogen 19 MG/DL (7-18) Random Glucose 118 MG/DL (74-106) 107 MG/DL (74-106) Chloride Level 110 MEQ/L (98-107) 112 MEQ/L (98-107) Estimat Glomerular Filtration Rate 70 ML/MIN (>89) 82 ML/MIN (>89) Troponin I LESS THAN 0.02 NG/ML Red Blood Count 4.30 MIL/MM3 (4.50-5.90) 4.29 MIL/MM3 (4.50-5.90) Activated Partial Thromboplast Time 51.9 SEC (24.3-30.1) Eosinophils (%) (Auto) 4.2 % (0.0-4.0) Calcium Level 8.0 MG/DL (8.5-10.1) Anion Gap 4 MEQ/L (5-15) Test 06/16/17 09:23 06/17/17 04:00 Red Blood Count 4.23 MIL/MM3 (4.50-5.90) Neutrophils (%) (Auto) 88.3 % (16.0-70.0) Lymphocytes (%) (Auto) 8.3 % (9.0-44.0) Neutrophils # (Auto) 7.8 TH/MM3 (1.8-7.7) Lymphocytes # (Auto) 0.7 TH/MM3 (1.0-4.8) Random Glucose 131 MG/DL (74-106) Chloride Level 110 MEQ/L (98-107) Estimat Glomerular Filtration Rate 70 ML/MIN (>89) Imaging Last Impressions Chest X-Ray 06/15/17 0552 Signed Impressions: Service Date/Time: Thursday, June 15, 2017 06:08 - CONCLUSION: No acute cardiopulmonary disease demonstrated. Zaid Lopez MD PE at Discharge GENERAL: This is a well-nourished, well-developed patient, in no apparent distress. SKIN: No rashes, ecchymoses or lesions. Cool and dry. HEAD: Atraumatic. Normocephalic. No temporal or scalp tenderness. EYES: Pupils equal round and reactive. Extraocular motions intact. No scleral icterus. No injection or drainage. ENT: Nose without bleeding, purulent drainage or septal hematoma. Throat without erythema, tonsillar hypertrophy or exudate. Uvula midline. Airway patent. NECK: Trachea midline. No JVD or lymphadenopathy. Supple, nontender, no meningeal signs. CARDIOVASCULAR: Tachycardic. Regular rate and rhythm without murmurs, gallops, or rubs. RESPIRATORY: Clear to auscultation. Breath sounds equal bilaterally. No wheezes , rales, or rhonchi. GASTROINTESTINAL: Abdomen soft, non-tender, nondistended. No hepato-splenomegaly , or palpable masses. No guarding. MUSCULOSKELETAL: Extremities without clubbing, cyanosis, or edema. No joint tenderness, effusion, or edema noted. No calf tenderness. Negative Homans sign bilaterally. NEUROLOGICAL: Awake and alert. Cranial nerves II through XII intact. Motor and sensory grossly within normal limits. Five out of 5 muscle strength in all muscle groups. Normal speech. Pt update on day of discharge Feels much better says he felt immediately after ablation significant improvement. No events overnight. Wants to go home. No chest pain or shortness of breath no nausea no vomiting no diarrhea or constipation no palpitations. Hospital Course Atrial flutter with rapid ventricular response, with a rate of 150 on admission Hypertension Chronic back pain Received adenosine in the emergency room, also metoprolol, Cardizem, he was also placed on esmolol however she has blood pressure is noted persistent low. Discontinued esmolol. Started on amiodarone bolus followed by amiodarone drip. Discussed with Dr. Marquez cardiology following. Consult wan support specialist Dr. Crain for evaluation of ablation this patient with persistent atrial flutter. Patient went for EP studies and ablation for atrial fibrillation by Dr. Crain 2D ECHO reviewed with ejection fraction 35% to 40% however this might be due to arrhythmia. Recommend that repeat 2D echo as outpatient later this patient now status post ablation. On heparin drip, Eliquis at DC Restart home medications as appropriate. Hold lisinopril if systolic blood pressure lower than 110 Patient improved after ablation feels much better. Discharged home in stable condition to follow-up with PCP in consultants as outpatient Pt Condition on Discharge: Stable Discharge Disposition: Discharge Home Discharge Time: > 30 minutes Discharge Instructions DIET: Follow Instructions for: Heart Healthy Diet Activities you can perform: Regular-No Restrictions Follow up Referrals: Cardiology - 1 Week PCP Follow-up - 2-3 Days New Medications: Apixaban (Eliquis) 5 Mg Tab 5 MG PO BID for Blood Clot Prevention, #60 TAB Continued Medications: Hydrocodone-Acetaminophen (Kaleva) 5-325 mg Tab 1 TAB PO Q6H PRN for PAIN, #15 TAB 0 Refills Lisinopril (Lisinopril) 10 Mg Tab 10 MG PO DAILY, #90 TAB 2 Refills Sandra Avila MD Jun 17, 2017 09:22
[2017-06-17] MEDS: LORazepam 0.5 MG TAB PO PRN (10:32)
--- NOTE | 2017-06-17 12:10 | EKG ---
Date Performed: 06/17/2017 Time Performed: 05:39:48 PTAGE: 52 years EKG: Sinus rhythm Leftward axis Possible anterior infarct - age undetermined Abnormal ECG Since the PREVIOUS TRACING , no significant change noted DOCTOR: Wendy Maciel Interpretating Date/Time 06/17/2017 12:09:52
--- NOTE | 2017-06-17 14:55 | PD.CARD.PN ---
Subjective Subjective Remarks Patient was seen earlier today, late entry note No chest pain/SOB Sinus rhythm Objective Vital Signs / I&O Vital Signs Date Time Temp Pulse Resp B/P (MAP) Pulse Ox O2 Delivery O2 Flow Rate FiO2 06/17/17 11:00 80 06/17/17 11:00 97.8 78 20 128/65 (86) 94 06/17/17 10:47 21 06/17/17 10:00 79 06/17/17 09:00 74 06/17/17 08:00 73 06/17/17 07:00 69 06/17/17 07:00 97.5 76 20 125/70 (88) 95 06/17/17 06:10 73 06/17/17 05:00 70 06/17/17 04:00 88 06/17/17 03:24 98.0 76 15 121/70 (87) 93 06/17/17 03:00 77 06/17/17 02:00 80 06/17/17 01:00 71 06/17/17 00:00 70 06/16/17 23:22 74 06/16/17 23:22 98.0 76 15 115/62 (79) 95 06/16/17 21:25 79 06/16/17 21:25 98.3 76 15 110/59 (76) 93 06/16/17 21:00 21 06/16/17 21:00 73 24 97/56 (70) 94 Nasal Cannula 4 06/16/17 20:45 86 20 94/52 (66) 99 Nasal Cannula 4 06/16/17 20:30 77 22 97/53 (68) 95 Nasal Cannula 4 06/16/17 20:15 81 18 94/52 (66) 96 Nasal Cannula 4 06/16/17 20:00 98.3 85 18 95/51 (66) 97 Nasal Cannula 4 06/16/17 18:00 136 06/16/17 17:00 141 06/16/17 16:00 98.4 128 14 115/57 (76) 98 06/16/17 16:00 128 06/16/17 15:51 105 115/55 06/16/17 15:42 133 137/81 06/16/17 15:34 136 119/64 06/16/17 15:22 133 116/82 06/16/17 15:00 136 I/O 06/16/17 06/16/17 06/16/17 06/17/17 06/17/17 06/17/17 07:00 15:00 23:00 07:00 15:00 23:00 Intake Total 1006 ml 401 ml 931 ml 700 ml Output Total 2300 ml 2 ml 400 ml Balance -1294 ml 401 ml 929 ml 300 ml Intake Oral 660 ml 60 ml 700 ml IV Total 346 ml 401 ml 371 ml Other 500 ml Output Urine Total 2300 ml 400 ml Estimated Blood Loss 2 ml # Voids 4 # Bowel Movements 0 0 Physical Exam GENERAL: NAD, AAOx3 SKIN: Warm and dry. HEAD: Atraumatic. Normocephalic. EYES: Pupils equal and round. No scleral icterus. No injection or drainage. ENT: No nasal bleeding or discharge. Mucous membranes pink and moist. NECK: Trachea midline. No JVD. CARDIOVASCULAR: Regular rate rhythm RESPIRATORY: No accessory muscle use. Clear to auscultation. Breath sounds equal bilaterally. GASTROINTESTINAL: Abdomen soft, non-tender, nondistended. Hepatic and splenic margins not palpable. MUSCULOSKELETAL: Extremities without clubbing, cyanosis, or edema. No obvious deformities. B/L femorals no hematoma NEUROLOGICAL: Awake and alert. No obvious cranial nerve deficits. Motor grossly within normal limits. Five out of 5 muscle strength in the arms and legs. Normal speech. PSYCHIATRIC: Appropriate mood and affect; insight and judgment normal. Laboratory Laboratory Tests Test 06/17/17 04:00 White Blood Count 8.8 TH/MM3 Red Blood Count 4.23 MIL/MM3 Hemoglobin 14.1 GM/DL Hematocrit 40.9 % Mean Corpuscular Volume 96.7 FL Mean Corpuscular Hemoglobin 33.3 PG Mean Corpuscular Hemoglobin Concent 34.4 % Red Cell Distribution Width 13.0 % Platelet Count 190 TH/MM3 Mean Platelet Volume 10.9 FL Neutrophils (%) (Auto) 88.3 % Lymphocytes (%) (Auto) 8.3 % Monocytes (%) (Auto) 3.3 % Eosinophils (%) (Auto) 0.0 % Basophils (%) (Auto) 0.1 % Neutrophils # (Auto) 7.8 TH/MM3 Lymphocytes # (Auto) 0.7 TH/MM3 Monocytes # (Auto) 0.3 TH/MM3 Eosinophils # (Auto) 0.0 TH/MM3 Basophils # (Auto) 0.0 TH/MM3 CBC Comment DIFF FINAL Differential Comment Prothrombin Time 10.4 SEC Prothromb Time International Ratio 1.0 RATIO Activated Partial Thromboplast Time 25.1 SEC Blood Urea Nitrogen 13 MG/DL Creatinine 1.11 MG/DL Random Glucose 131 MG/DL Calcium Level 8.8 MG/DL Magnesium Level 2.1 MG/DL Sodium Level 144 MEQ/L Potassium Level 4.7 MEQ/L Chloride Level 110 MEQ/L Carbon Dioxide Level 25.9 MEQ/L Anion Gap 8 MEQ/L Estimat Glomerular Filtration Rate 70 ML/MIN Assessment and Plan Problem List: (1) Atrial flutter with rapid ventricular response ICD Codes: I48.92 - Unspecified atrial flutter Status: Acute (2) Tobacco use disorder ICD Codes: Z72.0 - Tobacco use disorder Status: Acute (3) Essential hypertension ICD Codes: I10 - Essential hypertension Status: Acute (4) Obesity ICD Codes: E66.9 - Obesity Status: Acute Assessment and Plan 1) Aflutter with RVR s/p ablation 2) EF 40%, possible tachyarrhythmic Recheck outpt now that rates controlled 3) Eliquis 5mg BID 4) Cardiovascularly stable for discharge Juno Marquez DO Jun 17, 2017 14:55
--- NOTE | 2017-06-17 22:44 | EKG ---
Date Performed: 06/16/2017 Time Performed: 20:28:43 PTAGE: 52 years EKG: Sinus rhythm MARKED LEFT AXIS DEVIATION ABNORMAL ECG PREVIOUS TRACING : 06/15/2017 05.53 Compared to previous tracing, a flutter no longer present DOCTOR: Wendy Maciel Interpretating Date/Time 06/17/2017 22:41:53
--- NOTE | 2017-06-17 23:26 | EKG ---
Date Performed: 06/15/2017 Time Performed: 05:53:45 PTAGE: 52 years EKG: ATRIAL FLUTTER/TACHYCARDIA WITH RAPID VENTRICULAR RESPONSE LEFT ANTERIOR FASCICULAR BLOCK J UNCTIONAL ST DEPRESSION, CONSIDER NORMAL VARIANT ABNORMAL ECG PREVIOUS TRACING : 08/11/2013 11.53 Compared to previous tracing, SR no longer present DOCTOR: Wendy Maciel Interpretating Date/Time 06/17/2017 23:25:13
== END 2017-06-17 13:01 | disposition home or self-care (01) | DRG 274 ==
LOC: NEPE 05:37 → NEDA 08:35 → HCPC 13:15
PROVIDERS: ADMIT Hospitalist; ATTEND Hospitalist
PROC: 02K83ZZ Map Conduction Mechanism, Percutaneous Approach (ICD-10-PCS; 2017-06-16)
PROC: 4A023FZ Measurement of Cardiac Rhythm, Percutaneous Approach (ICD-10-PCS; 2017-06-16)
PROC: 4A0234Z Measurement of Cardiac Electrical Activity, Percutaneous Approach (ICD-10-PCS; 2017-06-16)
PROC: 02583ZZ Destruction of Conduction Mechanism, Percutaneous Approach (ICD-10-PCS; principal; 2017-06-16 16:00)
DX: I48.92 Unspecified atrial flutter (principal); I48.91 Unspecified atrial fibrillation; Z68.41 Body mass index [BMI] 40.0-44.9, adult; I95.9 Hypotension, unspecified; E66.01 Morbid (severe) obesity due to excess calories; I10 Essential (primary) hypertension; M54.9 Dorsalgia, unspecified; E78.5 Hyperlipidemia, unspecified; G89.29 Other chronic pain; F17.210 Nicotine dependence, cigarettes, uncomplicated; Z23 Encounter for immunization; Z82.49 Family history of ischemic heart disease and other diseases of the circulatory system
CPT/HCPCS: 71045; 80048; 80307; 83735; 84443; 84484; 85002; 85025; 85027; 85610; 85730; 93005; 93306; 93613; 93623; 93653; 96361; 96374; 96375; C1730; C1732; C2630; J0153; J0282; J0330; J1100; J1644; J2370; J2405; J3010; J7030; J7040; J7050